=== PATIENT | female | born 1970 | race Caucasian/White ===

== ENCOUNTER 2017-06-06 14:14 | Emergency (ER) | payer SELFPAY | END 2017-06-06 14:15 | disposition left against medical advice (07) | LOC: ED 14:14 | DX: Z53.21 Procedure and treatment not carried out due to patient leaving prior to being seen by health care provider (principal); R53.1 Weakness ==

== ENCOUNTER 2017-06-07 04:12 | Inpatient (IN) | payer MEDICAID, OTHER ==
--- NOTE | 2017-06-07 05:16 | XRay Report ---
FINAL REPORT EXAM: XR CHEST ROUTINE 2V HISTORY: Shortness of breath TECHNIQUE: PA and lateral views of the chest were submitted. FINDINGS: The heart size and pulmonary vascular appear normal. The interstitial markings are mildly prominent bilaterally. This may be on a chronic basis. There are no localized infiltrates or effusions. The skeletal structures are well-maintained. IMPRESSION: Prominence of the interstitial markings which may be on a chronic basis. No localized infiltrates identified.
[2017-06-07 05:21] LABS: Basophils % (Auto) 0.4 % (0.0-1.8); Eosinophils # (Auto) 0.2 K/mm3 (0.0-0.4); Eosinophils % (Auto) 2.1 % (0.0-4.3); Lymphocytes # (Auto) 1.3 K/mm3 (1.2-5.4); Lymphocytes % (Auto) 14.7 % (13.4-35.0); Mean Corpuscular HGB Conc 36 % (30-34); Mean Corpuscular Hemoglobin 32 pg (28-32); Mean Corpuscular Volume 91 fl (79-97); Monocytes # (Auto) 0.5 K/mm3 (0.0-0.8); Monocytes % (Auto) 6.1 % (0.0-7.3); Platelet Count 273 K/mm3 (140-440); Red Blood Count 1.83 M/mm3 (3.65-5.03); Red Cell Distribution Width 15.8 % (13.2-15.2)
[2017-06-07 05:24] LABS: Calcium 9.4 mg/dL (8.4-10.2)
[2017-06-07 05:27] LABS: Hematocrit 16.7 % (30.3-42.9); Hemoglobin 5.9 gm/dl (10.1-14.3)
[2017-06-07 08:59] LABS: INR 1.19 (0.87-1.13)
[2017-06-07 09:00] LABS: Partial Thromboplastin Time 37.9 Sec. (24.2-36.6)
[2017-06-07] MEDS ORDERED: PERCOCET 5/325 PO ONE (09:54)
[2017-06-07] MEDS ORDERED: NACL 0.9% 500 ML 500 ML IV ONE (09:55)
--- NOTE | 2017-06-07 09:59 | Emergency Department Report ---
ED Shortness of Breath HPI - General Chief Complaint: Dyspnea/Respdistress Stated Complaint: WEAKNESS Time Seen by Provider: 06/07/17 08:16 Source: patient Mode of arrival: Ambulatory Limitations: No Limitations - History of Present Illness Initial Comments: 47-year-old female with a past medical history of end-stage disease on dialysis , recurrent anemia requiring blood transfusion, brain aneurysm status post coil , hypothyroidism presents to the hospital with complaints of cold symptoms last name is given. A last several days patient has been feeling weak, dyspneic exertion, and fatigue. Last dialysis was on the . Patient try to get dialysis yesterday/Sunday but was declined because her heart rate was elevated and she had a fever. She had nausea and vomiting last week. She is said she may need a blood transfusion she denies melena, hematochezia, or hematemesis. Patient complains of generalized pain rated 8/10 in intensity. - Related Data Allergies Allergy/AdvReac Type Severity Reaction Status Date / Time No Known Allergies Allergy Verified 06/07/17 04:32 ED Review of Systems ROS: Stated complaint: WEAKNESS Other details as noted in HPI Comment: All other systems reviewed and negative Other: Constitutional: No fevers chills Eyes: No eye pain visual changes ENT: No ear pain or throat pain Neck: Denies pain Respiratory: As per HPI Cardiovascular: Denies chest pain, palpitations, syncope GI: Denies abdominal pain : Denies dysuria Musculoskeletal: Generalized muscular skeletal pain Skin: Denies rash, lesions, erythema Neurologic: Denies headache, numbness Psychiatric: Denies suicidal ideation, hallucinations ED Past Medical Hx - Past Medical History Previous Medical History?: Yes Hx Renal Disease: Yes (Dialysis Sun, sun, sun) Hx Psychiatric Treatment: Yes (depression) Hx HIV: Yes Additional medical history: hyperthyroid - Surgical History Past Surgical History?: No Additional Surgical History: brain anyerism with coil. graft right upper arm - Social History Smoking Status: Current Every Day Smoker Substance Use Type: Marijuana ED Physical Exam - General Limitations: No Limitations - Other Other exam information: General: No limitations, patient is alert in no acute distress Head exam: Atraumatic, normocephalic Eyes exam: Normal appearance ENT: Moist mucous membrane, normal oropharynx Neck exam: Normal inspection, full range of motion Respiratory exam: Crackles at the bases Cardiovascular: Normal rate and rhythm Abdomen: Soft, nondistended, and nontender, with normal bowel sounds, no rebound, or guarding Rectal: Guaiac negative brown stool Extremity: Full range of motion normal inspection no deformity Back: Normal Inspection, full range of motion, no tenderness Neurologic: Alert, oriented x3, cranial nerves intact, no motor or sensory deficit Psychiatric: normal affect, normal mood Skin: Warm, dry, intact ED Course Vital Signs 06/07/17 06/07/17 06/07/17 04:21 04:25 07:40 Temperature 98.2 F 98.2 F Pulse Rate 99 H 97 H 99 H Respiratory 18 18 20 Rate Blood Pressure 187/92 187/92 Blood Pressure [Left] O2 Sat by Pulse 98 100 100 Oximetry 06/07/17 06/07/17 06/07/17 07:48 07:49 07:51 Temperature 98.2 F Pulse Rate 98 H 99 H Respiratory 22 22 16 Rate Blood Pressure 151/86 Blood Pressure 151/86 [Left] O2 Sat by Pulse 96 100 Oximetry 06/07/17 06/07/17 06/07/17 08:00 08:11 08:21 Temperature Pulse Rate 99 H 100 H 101 H Respiratory 22 31 H 26 H Rate Blood Pressure 161/89 161/89 161/89 Blood Pressure [Left] O2 Sat by Pulse 98 96 98 Oximetry 06/07/17 06/07/17 06/07/17 08:31 08:41 08:51 Temperature Pulse Rate 105 H 113 H 105 H Respiratory 24 30 H 23 Rate Blood Pressure 161/89 161/89 161/89 Blood Pressure [Left] O2 Sat by Pulse 100 100 Oximetry 06/07/17 06/07/17 06/07/17 09:00 09:11 09:21 Temperature Pulse Rate 100 H 99 H 102 H Respiratory 18 31 H 16 Rate Blood Pressure 154/84 154/84 161/89 Blood Pressure [Left] O2 Sat by Pulse 97 98 99 Oximetry 06/07/17 06/07/17 06/07/17 09:30 09:41 09:50 Temperature Pulse Rate 105 H 99 H 108 H Respiratory 19 24 24 Rate Blood Pressure 161/89 161/89 154/84 Blood Pressure [Left] O2 Sat by Pulse 100 99 99 Oximetry 06/07/17 06/07/17 06/07/17 10:01 10:11 10:21 Temperature Pulse Rate 99 H 108 H 101 H Respiratory 25 H 21 26 H Rate Blood Pressure 154/84 154/84 154/84 Blood Pressure [Left] O2 Sat by Pulse 100 100 98 Oximetry 06/07/17 06/07/17 06/07/17 10:31 10:50 11:00 Temperature 99.0 F Pulse Rate 102 H 101 H 103 H Respiratory 31 H 20 Rate Blood Pressure 154/84 153/85 167/92 Blood Pressure [Left] O2 Sat by Pulse 98 Oximetry 06/07/17 06/07/17 06/07/17 11:15 11:30 11:45 Temperature Pulse Rate 103 H 103 H 101 H Respiratory Rate Blood Pressure 156/85 156/85 165/83 Blood Pressure [Left] O2 Sat by Pulse Oximetry 06/07/17 06/07/17 06/07/17 12:00 12:15 12:30 Temperature Pulse Rate 98 H 98 H 98 H Respiratory Rate Blood Pressure 166/89 166/89 151/88 Blood Pressure [Left] O2 Sat by Pulse Oximetry 06/07/17 06/07/17 06/07/17 12:45 13:00 13:15 Temperature Pulse Rate 97 H 97 H 95 H Respiratory Rate Blood Pressure 163/84 163/84 150/82 Blood Pressure [Left] O2 Sat by Pulse Oximetry 06/07/17 06/07/17 13:30 13:45 Temperature Pulse Rate 96 H 91 H Respiratory Rate Blood Pressure 156/84 142/84 Blood Pressure [Left] O2 Sat by Pulse Oximetry - Reevaluation(s) Reevaluation #1: 06/07/17 11:00 Percocet provided for pain - Consultations Consultation #1: 06/07/17 9:[address] Ward continuous dryout operator helper community mental health social worker for Dr. Holland. Will arrange for dialysis and transfusion with dialysis ED Medical Decision Making - Lab Data Result diagrams: 06/07/17 04:45 06/07/17 04:45 Lab Results 06/07/17 06/07/17 06/07/17 Range/Units 04:45 04:45 04:45 WBC 8.9 (4.5-11.0) K/mm3 RBC 1.83 L (3.65-5.03) M/mm3 Hgb 5.9 L* (10.1-14.3) gm/dl Hct 16.7 L* (30.3-42.9) % MCV 91 (79-97) fl MCH 32 (28-32) pg MCHC 36 H (30-34) % RDW 15.8 H (13.2-15.2) % Plt Count 273 (140-440) K/mm3 Lymph % (Auto) 14.7 (13.4-35.0) % [place]th % (Auto) 6.1 (0.0-7.3) % Eos % (Auto) 2.1 (0.0-4.3) % Baso % (Auto) 0.4 (0.0-1.8) % Lymph # 1.3 (1.2-5.4) K/mm3 [place]th # 0.5 (0.0-0.8) K/mm3 Eos # 0.2 (0.0-0.4) K/mm3 Baso # 0.0 (0.0-0.1) K/mm3 Seg Neutrophils % 76.7 H (40.0-70.0) % Seg Neutrophils # 6.9 (1.8-7.7) K/mm3 PT (12.2-14.9) Sec. INR (0.87-1.13) APTT (24.2-36.6) Sec. Sodium 132 L (137-145) mmol/L Potassium 4.7 (3.6-5.0) mmol/L Chloride 88.5 L (98-107) mmol/L Carbon Dioxide 18 L (22-30) mmol/L Anion Gap 30 mmol/L BUN 73 H (7-17) mg/dL Creatinine 14.7 H (0.7-1.2) mg/dL Estimated GFR 3 ml/min BUN/Creatinine Ratio 5 % Glucose 106 H (65-100) mg/dL Calcium 9.4 (8.4-10.2) mg/dL Troponin T < 0.010 (0.00-0.029) ng/mL NT-Pro-B Natriuret Pep (0-450) pg/mL Blood Type Antibody Screen Crossmatch 06/07/17 06/07/17 06/07/17 Range/Units 04:45 08:28 08:28 WBC (4.5-11.0) K/mm3 RBC (3.65-5.03) M/mm3 Hgb (10.1-14.3) gm/dl Hct (30.3-42.9) % MCV (79-97) fl MCH (28-32) pg MCHC (30-34) % RDW (13.2-15.2) % Plt Count (140-440) K/mm3 Lymph % (Auto) (13.4-35.0) % [place]th % (Auto) (0.0-7.3) % Eos % (Auto) (0.0-4.3) % Baso % (Auto) (0.0-1.8) % Lymph # (1.2-5.4) K/mm3 Smyth # (0.0-0.8) K/mm3 Eos # (0.0-0.4) K/mm3 Baso # (0.0-0.1) K/mm3 Seg Neutrophils % (40.0-70.0) % Seg Neutrophils # (1.8-7.7) K/mm3 PT 15.7 H (12.2-14.9) Sec. INR 1.19 H (0.87-1.13) APTT 37.9 H (24.2-36.6) Sec. Sodium (137-145) mmol/L Potassium (3.6-5.0) mmol/L Chloride (98-107) mmol/L Carbon Dioxide (22-30) mmol/L Anion Gap mmol/L BUN (7-17) mg/dL Creatinine (0.7-1.2) mg/dL Estimated GFR ml/min BUN/Creatinine Ratio % Glucose (65-100) mg/dL Calcium (8.4-10.2) mg/dL Troponin T (0.00-0.029) ng/mL NT-Pro-B Natriuret Pep 90004 H (0-450) pg/mL Blood Type A POSITIVE Antibody Screen Negative Crossmatch See Detail - EKG Data -: EKG Interpreted by Mt EKG shows normal: sinus rhythm, axis (52), QRS complexes (97), ST-T waves (mild peak t waves, no stemi/t inv) Rate: normal (97) - Radiology Data Radiology results: report reviewed Read by radiologist Chest x-ray: Prominence of interstitial markings which may be on a chronic basis. No focal infiltrate - Medical Decision Making Patient requires admission to the hospital for symptomatic anemia and dialysis. Community Affairs Director informed. Patient will receive dialysis and transfusion. Hospitalist contacted. No signs of infection or sepsis at this time - Differential Diagnosis CHF, bronchitis, pneumonia, symptomatic anemia Critical Care Time: No Critical care attestation.: If time is entered above; I have spent that time in minutes in the direct care of this critically ill patient, excluding procedure time. ED Disposition Clinical Impression: Symptomatic anemia, ESRD (end stage renal disease) on dialysis, ESRD needing dialysis, HTN (hypertension) Disposition: OP ADMIT IP TO THIS HOSP Is pt being admited?: Yes Condition: Stable Time of Disposition: 09:59 ([place]/hosp)
[2017-06-07] MEDS ORDERED: NACL 0.9% 100 ML IV PRN (10:31)
--- NOTE | 2017-06-07 10:46 | History and Physical Report ---
History of Present Illness Date of examination: 06/07/17 Chief complaint: Generalized weakness History of present illness: 47 year old -[place] female with past medical history significant for HIV/AIDS, end-stage disease on hemodialysis, depression, hypothyroidism, asthma , brain aneurysm status post coil presented to the emergency department complaining of generalized weakness for the last 1 month. Patient is also complaining fever episode on Sunday. Patient moved from [place] run out of all her medication for the last 1 month. She gets her dialysis as an outpatient. Patient is waiting her medcare to be fixed to get her medications. Patient has history of anemia and had transfusions before. REVIEW OF SYSTEMS: GENERAL: no weight change, no fatigue, no fever HEAD: no head ache EYES: no blurry vision, no acute visual loss EARS: no hearing loss, no discharge, no earache NOSE: no stuffiness, no sneezing, no discharge MOUTH, THROAT AND NECK: no bleeding gums, no sore throat, no swollen neck CARDIAC: no palpitations, no dyspnea on exertion, no orthopnea, no PND, no edema , no chest pain RESPIRATORY: no shortness of breath, no wheeze, no cough, no sputum, no hemoptysis, no asthma GI: + decreased appetite, no nausea, no vomiting, no dysphagia, no diarrhea, no constipation, no abdominal pain URINARY: no change in frequency, no urgency, no polyuria, no hematuria, no incontinence MUSCULOSKELETAL: no muscle weakness, no pain, no joint stiffness NEUROLOGIC: no loss of sensation/numbness, no tingling, no tremors, no weakness/ paralysis HEMATOLOGIC: + anemia, no easy bruising SKIN: no rashes ENDOCRINE: no polyuria, no polydipsia, no diabetes PSYCHIATRIC: no anxiety, + depression, no suicidal ideations Past History Past Medical History: HIV/AIDS, renal failure, other (depression, asthma) Past Surgical History: Other (Brain aneurysm s/p coil, AV graft) Social history: smoking (1/2 PPD), full code. denies: alcohol abuse, prescription drug abuse, IV drug use Family history: other (CKD, mom / Grand mother) Medications and Allergies Allergies Allergy/AdvReac Type Severity Reaction Status Date / Time No Known Allergies Allergy Verified 06/07/17 04:32 Active Meds: Active Medications Sodium Chloride (Nacl 0.9%) 100 mls @ 999 mls/hr IV CHRISSIE PRN PRN Reason: Hypotension Exam - Physical Exam Narrative exam: Not in cardiopulmonary distress. The patient appeared well nourished and normally developed. Vital signs as documented. Head exam is unremarkable. No scleral icterus . Neck is without jugular venous distension, thyromegaly, or carotid bruits. Lungs are clear to auscultation. Cardiac exam reveals regular rate and Rhythm. First and second heart sounds normal. No murmurs, rubs or gallops. Abdominal exam reveals normal bowel sounds, no masses, no organomegaly and no aortic enlargement. Extremities are nonedematous and both femoral and pedal pulses are normal. TRESTLE BUILDER: Alert and oriented 3. No focal weakness. - Constitutional Vitals: Temp Pulse Resp BP Pulse Ox 98.2 F 98 H 22 151/86 96 06/07/17 07:48 06/07/17 07:48 06/07/17 07:49 06/07/17 07:48 06/07/17 07:49 Results - Labs CBC & Chem 7: 06/07/17 16:15 06/07/17 04:45 Labs: Laboratory Last Values WBC 8.9 K/mm3 (4.5-11.0) 06/07/17 04:45 RBC 1.83 M/mm3 (3.65-5.03) L 06/07/17 04:45 Hgb 5.9 gm/dl (10.1-14.3) L* 06/07/17 04:45 Hct 16.7 % (30.3-42.9) L* 06/07/17 04:45 MCV 91 fl (79-97) 06/07/17 04:45 MCH 32 pg (28-32) 06/07/17 04:45 MCHC 36 % (30-34) H 06/07/17 04:45 RDW 15.8 % (13.2-15.2) H 06/07/17 04:45 Plt Count 273 K/mm3 (140-440) 06/07/17 04:45 Lymph % (Auto) 14.7 % (13.4-35.0) 06/07/17 04:45 [place] % (Auto) 6.1 % (0.0-7.3) 06/07/17 04:45 Eos % (Auto) 2.1 % (0.0-4.3) 06/07/17 04:45 Baso % (Auto) 0.4 % (0.0-1.8) 06/07/17 04:45 Lymph # 1.3 K/mm3 (1.2-5.4) 06/07/17 04:45 [place] # 0.5 K/mm3 (0.0-0.8) 06/07/17 04:45 Eos # 0.2 K/mm3 (0.0-0.4) 06/07/17 04:45 Baso # 0.0 K/mm3 (0.0-0.1) 06/07/17 04:45 Seg Neutrophils % 76.7 % (40.0-70.0) H 06/07/17 04:45 Seg Neutrophils # 6.9 K/mm3 (1.8-7.7) 06/07/17 04:45 PT 15.7 Sec. (12.2-14.9) H 06/07/17 08:28 INR 1.19 (0.87-1.13) H 06/07/17 08:28 APTT 37.9 Sec. (24.2-36.6) H 06/07/17 08:28 Sodium 132 mmol/L (137-145) L 06/07/17 04:45 Potassium 4.7 mmol/L (3.6-5.0) 06/07/17 04:45 Chloride 88.5 mmol/L (98-107) L 06/07/17 04:45 Carbon Dioxide 18 mmol/L (22-30) L 06/07/17 04:45 Anion Gap 30 mmol/L 06/07/17 04:45 BUN 73 mg/dL (7-17) H 06/07/17 04:45 Creatinine 14.7 mg/dL (0.7-1.2) H 06/07/17 04:45 Estimated GFR 3 ml/min 06/07/17 04:45 BUN/Creatinine Ratio 5 % 06/07/17 04:45 Glucose 106 mg/dL (65-100) H 06/07/17 04:45 Calcium 9.4 mg/dL (8.4-10.2) 06/07/17 04:45 Troponin T < 0.010 ng/mL (0.00-0.029) 06/07/17 04:45 NT-Pro-B Natriuret Pep 00915 pg/mL (0-450) H 06/07/17 04:45 Blood Type A POSITIVE 06/07/17 08:28 Antibody Screen Negative 06/07/17 08:28 Crossmatch See Detail 06/07/17 08:28 Assessment and Plan Assessment and plan: 47-year-old -[place] female with past medical history significant for incisional disease on hemodialysis, HIV AIDS, hypothyroidism, depression. Emergency department complaining of generalized weakness. Symptomatic anemia - Likely due to anemia of chronic illness - Patient was transfused with 2 units of blood and posttransfusion hemoglobin is 8 ESRD on hemodialysis - Nephrology was consulted and patient will continue hemodialysis as scheduled HIV-AIDS - Home medications were started - ID consulted to adjust her medications Depression - Continue medications Hypertension -Continue home medications Prophylaxis -Heparin Disposition -Admit to MedSurg floor. Advance Directives: Yes VTE prophylaxis?: Chemical Plan of care discussed with patient/family: Yes
[2017-06-07] MEDS: HEPARIN SUB-Q SCH ×2 (14:00→21:54)
[2017-06-07 16:51] LABS: Hematocrit 25.4 % (30.3-42.9); Hemoglobin 8.9 gm/dl (10.1-14.3)
[2017-06-07] MEDS ORDERED: PROAIR IH PRN (17:34)
[2017-06-07] MEDS ORDERED: DARUNAVIR PO SCH (17:45)
[2017-06-07] MEDS ORDERED: COBICISTAT PO SCH (17:45)
--- NOTE | 2017-06-07 17:48 | Consultation ---
History of Present Illness - Reason for Consult Consult date: 06/07/17 (pt was seen and examined in ER around 9.50AM. HD orders given to HD nurse. Consult dictated) Medications and Allergies Allergies Allergy/AdvReac Type Severity Reaction Status Date / Time No Known Allergies Allergy Verified 06/07/17 04:32 Active Meds: Active Medications Heparin Sodium (Porcine) (Heparin) 5,000 unit SUB-Q Q8HR MANISHA Last Admin: 06/07/17 14:00 Dose: Not Given Sodium Chloride (Nacl 0.9%) 100 mls @ 999 mls/hr IV CHRISSIE PRN PRN Reason: Hypotension Exam - Constitutional Vitals: Temp Pulse Resp BP Pulse Ox 102.1 F H 116 H 16 148/92 95 06/07/17 17:21 06/07/17 17:21 06/07/17 16:10 06/07/17 17:21 06/07/17 17:21 Results - Labs CBC & Chem 7: 06/07/17 16:15 06/07/17 04:45 Labs: Abnormal lab results 06/07/17 06/07/17 06/07/17 Range/Units 04:45 04:45 04:45 RBC 1.83 L (3.65-5.03) M/mm3 Hgb 5.9 L* (10.1-14.3) gm/dl Hct 16.7 L* (30.3-42.9) % MCHC 36 H (30-34) % RDW 15.8 H (13.2-15.2) % Seg Neutrophils % 76.7 H (40.0-70.0) % PT (12.2-14.9) Sec. INR (0.87-1.13) APTT (24.2-36.6) Sec. Sodium 132 L (137-145) mmol/L Chloride 88.5 L (98-107) mmol/L Carbon Dioxide 18 L (22-30) mmol/L BUN 73 H (7-17) mg/dL Creatinine 14.7 H (0.7-1.2) mg/dL Glucose 106 H (65-100) mg/dL NT-Pro-B Natriuret Pep 86613 H (0-450) pg/mL Crossmatch 01/04/18 01/04/18 01/04/18 Range/Units 08:28 08:28 16:15 RBC (3.65-5.03) M/mm3 Hgb 8.9 L D (10.1-14.3) gm/dl Hct 25.4 L D (30.3-42.9) % MCHC (30-34) % RDW (13.2-15.2) % Seg Neutrophils % (40.0-70.0) % PT 15.7 H (12.2-14.9) Sec. INR 1.19 H (0.87-1.13) APTT 37.9 H (24.2-36.6) Sec. Sodium (137-145) mmol/L Chloride (98-107) mmol/L Carbon Dioxide (22-30) mmol/L BUN (7-17) mg/dL Creatinine (0.7-1.2) mg/dL Glucose (65-100) mg/dL NT-Pro-B Natriuret Pep (0-450) pg/mL Crossmatch See Detail
[2017-06-07] MEDS ORDERED: TYLENOL PO PRN (18:00)
[2017-06-07] MEDS ORDERED: PROVENTIL IH PRN (18:05)
[2017-06-07] MEDS: ZESTRIL PO SCH (18:25)
[2017-06-07] MEDS: LOPRESSOR PO SCH (21:53)
[2017-06-07] MEDS: celeXA PO SCH (21:53)
[2017-06-07] MEDS: FOLVITE PO SCH (21:54)
[2017-06-08 00:32] LABS: Hematocrit 20.6 % (30.3-42.9); Hemoglobin 7.4 gm/dl (10.1-14.3)
--- NOTE | 2017-06-08 02:02 | Consultation ---
RENAL CONSULTATION HISTORY OF PRESENT ILLNESS: This is a 47-year-old -[place] female with end-stage renal disease, hypertension, was brought to the hospital for having nasal cold symptoms, fever, nausea, vomiting, sweating, shortness of breath, fatigue. The patient goes to [facility] on Sunday, Sunday, and Sunday. Her last hemodialysis treatment was on 06/01/2017. The patient did not go to dialysis this week. Yesterday, when she went to the dialysis clinic, she was told to have tachycardia with heart rate of 123 and was referred to the hospital. The patient states that she has been having cold symptoms since , had fever of 103 at home and then she states that she took [place] and Motrin. She complains that her whole body is hurting and no energy and no hemodialysis on Sunday or Sunday. The patient states that she has been on hemodialysis for the past 10 years. Moved from [place] towards the end of March. PAST MEDICAL HISTORY: End-stage renal disease; hypertension; hypothyroidism; history of HIV; and history of brain aneurysm, status post coil. PERSONAL HISTORY: History of smoking and marijuana. ALLERGIES: No known allergies. CURRENT MEDICATIONS: Celexa 10 mg once a day, folic acid once a day, Epivir 150 mg once a day, Synthroid 25 mcg once a day, lisinopril 20 mg once a day, metoprolol 25 mg b.i.d., tenofovir 300 mg once a day. FAMILY HISTORY: No family history of kidney failure. REVIEW OF SYSTEMS: As mentioned in history of present illness, the patient denies abdominal pain or GI bleeding. Other review of systems reviewed and negative. PHYSICAL EXAMINATION: GENERAL: The patient is alert, oriented. VITAL SIGNS: Blood pressure 187/90, pulse 97, afebrile. HEENT: Head is normocephalic. Eyes: Pupils reactive. Conjunctivae pale. Oral mucosa: Tongue and lips are dry. NECK: No JVD. No thyroid enlargement. LUNGS: Diminished breath sounds at bases. HEART: S1, S2 regular. A 2/6 systolic murmur along the left sternal border. ABDOMEN: Soft, bowel sounds present, nontender. EXTREMITIES: No significant edema. Right upper arm AV fistula has bruit and thrill. LABORATORY DATA: WBC 8.9, hemoglobin 5.9, hematocrit 16.7, platelets 273. Sodium 132, potassium 4.7, chloride 88, CO2 of 18, BUN 73, creatinine 14.7, calcium 9.4. ASSESSMENT AND PLAN: 1. Severe symptomatic anemia. The patient denies active bleeding. Check anemia workup. 2. End-stage renal disease. 3. Hypertension. 4. Metabolic acidosis. 5. Mild hyponatremia. Hemodialysis as ordered with no heparin. The patient to receive packed RBC transfusion with dialysis, ultrafiltration as tolerated. Adjust medications per renal function. Discussed with the ER physician, Dr. Rice. JOB# [id number] K/NTS
[2017-06-08 06:10] LABS: Hematocrit 21.3 % (30.3-42.9); Hemoglobin 7.4 gm/dl (10.1-14.3)
[2017-06-08] MEDS: SYNTHROID PO SCH (06:27)
[2017-06-08] MEDS: HEPARIN SUB-Q SCH ×3 (06:28→21:34)
--- NOTE | 2017-06-08 09:15 | Progress Note ---
Subjective Interval history: Patient was seen today for follow-up on multiple renal related issues Events of this hospitalization noted Patient does not remember having any recent colonoscopy She denies seeing any blood in the urine or stool Patient denies having any chest pain pressure or shortness of breath Vitals labs intake output medications were reviewed Social history: Reviewed Allergies: Reviewed Family history: Reviewed Physical examination HEENT: Oral mucosa moist no pallor or icterus Neck: Supple no JVD Chest: Clear to auscultation anteriorly CVS: Regular rate and rhythm S1 and S2 heard Abdomen: Soft nontender no suprapubic masses no organomegaly appreciable Extremity: Dry skin less than 1+ peripheral edema Musculoskeletal: No joint effusion noted in knees and ankle Neurological: Alert awake Dermatology: No petechial rashes Psychiatry: No evidence of any agitation and aggression noted Assessment and plan End-stage renal disease: Patient did receive hemodialysis, she'll continue to dialyze on Sunday and Sunday schedule here, she is currently a new patient at [facility] dialysis facility Anemia in end-stage renal disease: Post packed red blood cell transfusion, no heparin with dialysis, needs further workup including a GI and hematological workup from renal standpoint anemia is quite significant patient was advised to follow-up with hematology oncology as well as gastroenterology after discharge as well. medically she appears to be stable in terms of having any shortness of breath chest pain or fatigue Secondary hyperparathyroidism: To monitor and follow HIV disease patient needs to be seen and followed by infectious disease Malnutrition risk: High in dialysis patient please consider high protein diet at least 1.5 g per KG body weight nutrition consultation will be helpful Patient was adequately counseled and educated regarding multiple renal related issues Pertinent lab findings were discussed with patient, patient does exhibit good understanding of renal issues We'll continue to follow and make recommendation from renal standpoint Objective - Vital Signs Vital signs: Vital Signs - 12hr 06/07/17 06/08/17 21:35 07:48 Temperature 97.4 F L 98.9 F Pulse Rate 103 H 93 H Respiratory 16 18 Rate Blood Pressure 130/79 142/79 O2 Sat by Pulse 98 92 Oximetry - Lab 06/08/17 16:29 06/07/17 04:45 Most recent lab results Calcium 9.4 mg/dL (8.4-10.2) 06/07/17 04:45
--- NOTE | 2017-06-08 11:57 | Gastroenterology Consultation ---
<BASSEM GRIFFIN - Last Filed: 06/08/17 12:14> History of Present Illness - Reason for Consult Consult date: 06/08/17 anemia Requesting physician: LASHAWN FLORES - History of Present Illness Patient is a 47 y/o female with PMH of HIV/AIDS, ESRD on HD, depression, hypothyroidism, asthma, brain aneurysm (s/p coil), and chronic anemia requiring multiple transfusions in the past who presented to ED with c/o weakness. GI has been consulted for anemia. This morning pt was sitting up in bed w/o distress. Daughter at bedside. Patient states she recently moved to this area from [place] and while there she was recommended to have an EGD/colonoscopy for hx of anemia but never followed up. She denies any signs of active bleeding such as hematemesis, melena, or hematochezia. No NSAID use. No hx of PUD or liver disease. Admits to a Fhx of colon cancer with her father diagnosed in his 50s. She is currently w/o GI complaints. Denies fever, wt loss, CP, SOB, dizziness, abd pain, N/V, dysphagia, diarrhea, or constipation. Past History Past Medical History: HIV/AIDS, renal failure, other (depression, asthma) Past Surgical History: Other (Brain aneurysm s/p coil, AV graft) Social history: smoking (1/2 PPD), full code. denies: alcohol abuse, prescription drug abuse, IV drug use Family history: other (CKD, mom / Grand mother) Medications and Allergies Allergies Allergy/AdvReac Type Severity Reaction Status Date / Time No Known Allergies Allergy Verified 06/07/17 04:32 Active Meds: Active Medications Acetaminophen (Tylenol) 650 mg PO Q6H PRN PRN Reason: Pain, Mild (1-3) Last Admin: 06/07/17 18:25 Dose: 650 mg Albuterol (Proventil) 2.5 mg IH Q4HRT PRN PRN Reason: Shortness Of Breath Citalopram Hydrobromide (Celexa) 10 mg PO QDAY [facility] Last Admin: 06/07/17 21:53 Dose: 10 mg Folic Acid (Folvite) 1 mg PO QDAY [facility] Last Admin: 06/07/17 21:54 Dose: 1 mg Heparin Sodium (Porcine) (Heparin) 5,000 unit SUB-Q Q8HR [facility] Last Admin: 06/08/17 06:28 Dose: 5,000 unit Sodium Chloride (Nacl 0.9%) 100 mls @ 999 mls/hr IV CHRISSIE PRN PRN Reason: Hypotension Lamivudine (Epivir) 150 mg PO MoWeFr [facility] Levothyroxine Sodium (Synthroid) 25 mcg PO DAILY@0600 [facility] Last Admin: 06/08/17 06:27 Dose: 25 mcg Lisinopril (Zestril) 20 mg PO QDAY [facility] Last Admin: 06/07/17 18:25 Dose: 20 mg Metoprolol Tartrate (Lopressor) 25 mg PO BID [facility] Last Admin: 06/07/17 21:53 Dose: 25 mg Miscellaneous Medication (Cobicistat-Darunavir) 1 tab PO DAILY [facility] Tenofovir Disoproxil Fumarate (Viread) 300 mg PO [facility] Review of Systems - Review of Systems All systems: negative Constitutional: weakness Gastrointestinal: no hematemesis, no coffee ground emesis, no melena, no hematochezia Exam - Constitutional Vital Signs: Temp Pulse Resp BP Pulse Ox 98.9 F 93 H 18 142/79 92 06/08/17 07:48 06/08/17 07:48 06/08/17 07:48 06/08/17 07:48 06/08/17 07:48 General appearance: no acute distress, well-nourished - EENT Eyes: PERRL, EOM intact ENT: hearing intact - Respiratory Respiratory: bilateral: CTA - Cardiovascular Rhythm: regular Heart Sounds: Present: S1 & S2 - Gastrointestinal General gastrointestinal: Present: soft, non-tender, non-distended, normal bowel sounds - Neurologic Neurological: alert and oriented x3 - Labs CBC & Chem 7: 06/08/17 05:15 06/07/17 04:45 Lab Results: Laboratory Results - last 24 hr 06/07/17 06/07/17 06/07/17 00:00 08:28 16:15 Hgb 7.4 L 8.9 L D Hct 20.6 L 25.4 L D Blood Type A POSITIVE Antibody Screen Negative Crossmatch See Detail 06/08/17 05:15 Hgb 7.4 L Hct 21.3 L Blood Type Antibody Screen Crossmatch Assessment and Plan 1.anemia -HGB 7.4- s/p transfusion 1 unit PRBCs -continue to monitor H/H and transfuse as needed -pt reports a chronic hx of anemia requiring previous transfusions while living in [place] -currently no active signs of bleeding -etiology unclear- possibly 2/2 ESRD -recommend pt have EGD and colonoscopy as an outpatient -plan discussed with pt and she is in agreement (also discussed plan with Dr. Flores) -continue supportive care -pt is okay to be d/c from GI standpoint with f/u clinic appt in 2-3 weeks to schedule EGD/colonoscopy -will sign off, please re-consult if needed <MARKY RATLIFF R - Last Filed: 06/08/17 12:23> Medications and Allergies Active Meds: Active Medications Acetaminophen (Tylenol) 650 mg PO Q6H PRN PRN Reason: Pain, Mild (1-3) Last Admin: 06/07/17 18:25 Dose: 650 mg Albuterol (Proventil) 2.5 mg IH Q4HRT PRN PRN Reason: Shortness Of Breath Citalopram Hydrobromide (Celexa) 10 mg PO QDAY [facility] Last Admin: 06/07/17 21:53 Dose: 10 mg Folic Acid (Folvite) 1 mg PO QDAY [facility] Last Admin: 06/07/17 21:54 Dose: 1 mg Heparin Sodium (Porcine) (Heparin) 5,000 unit SUB-Q Q8HR [facility] Last Admin: 06/08/17 06:28 Dose: 5,000 unit Sodium Chloride (Nacl 0.9%) 100 mls @ 999 mls/hr IV CHRISSIE PRN PRN Reason: Hypotension Lamivudine (Epivir) 150 mg PO MoWeFr [facility] Levothyroxine Sodium (Synthroid) 25 mcg PO DAILY@0600 [facility] Last Admin: 06/08/17 06:27 Dose: 25 mcg Lisinopril (Zestril) 20 mg PO QDAY [facility] Last Admin: 06/07/17 18:25 Dose: 20 mg Metoprolol Tartrate (Lopressor) 25 mg PO BID [facility] Last Admin: 06/07/17 21:53 Dose: 25 mg Miscellaneous Medication (Cobicistat-Darunavir) 1 tab PO DAILY [facility] Tenofovir Disoproxil Fumarate (Viread) 300 mg PO [facility] Exam - Constitutional Vital Signs: Temp Pulse Resp BP Pulse Ox 98.9 F 93 H 18 142/79 92 06/08/17 07:48 06/08/17 07:48 06/08/17 07:48 06/08/17 07:48 06/08/17 07:48 - Labs CBC & Chem 7: 06/08/17 05:15 06/07/17 04:45 Lab Results: Laboratory Results - last 24 hr 06/07/17 06/07/17 06/07/17 00:00 08:28 16:15 Hgb 7.4 L 8.9 L D Hct 20.6 L 25.4 L D Blood Type A POSITIVE Antibody Screen Negative Crossmatch See Detail 06/08/17 05:15 Hgb 7.4 L Hct 21.3 L Blood Type Antibody Screen Crossmatch Assessment and Plan Pt had HIV in , on HD for ESRD since 2004, and has anemia for more than 1 yr. No GI symptoms. Low RBC c/w low erythropoietin levels. No elidia GI bleed. - check iron studies, etc. - will do EGD/Colon as outpatient. Discussed with Dr. Flores, Dr. Holland, and pt. She was given contact info.
--- NOTE | 2017-06-08 12:58 | Hem/Onc Consultation ---
History of Present Illness - Reason for Consult Consult date: 06/08/17 - History of Present Illness Consulted for anemia. She relocated from [place]. Is on dialysis. Has many medical problems but states she ran out of all her medications and came to ER. She has chronic anemia known since when [place] was [place] and advised workup. Past History Past Medical History: HIV/AIDS, renal failure, other (depression, asthma) Past Surgical History: Other (Brain aneurysm s/p coil, AV graft) Social history: smoking (1/2 PPD), full code. denies: alcohol abuse, prescription drug abuse, IV drug use Family history: other (CKD, mom / Grand mother) Medications and Allergies Allergies Allergy/AdvReac Type Severity Reaction Status Date / Time No Known Allergies Allergy Verified 06/07/17 04:32 Active Meds: Active Medications Acetaminophen (Tylenol) 650 mg PO Q6H PRN PRN Reason: Pain, Mild (1-3) Last Admin: 06/07/17 18:25 Dose: 650 mg Albuterol (Proventil) 2.5 mg IH Q4HRT PRN PRN Reason: Shortness Of Breath Citalopram Hydrobromide (Celexa) 10 mg PO QDAY [facility] Last Admin: 06/07/17 21:53 Dose: 10 mg Folic Acid (Folvite) 1 mg PO QDAY [facility] Last Admin: 06/07/17 21:54 Dose: 1 mg Heparin Sodium (Porcine) (Heparin) 5,000 unit SUB-Q Q8HR [facility] Last Admin: 06/08/17 06:28 Dose: 5,000 unit Sodium Chloride (Nacl 0.9%) 100 mls @ 999 mls/hr IV CHRISSIE PRN PRN Reason: Hypotension Lamivudine (Epivir) 150 mg PO MoWeFr [facility] Levothyroxine Sodium (Synthroid) 25 mcg PO DAILY@0600 [facility] Last Admin: 06/08/17 06:27 Dose: 25 mcg Lisinopril (Zestril) 20 mg PO QDAY [facility] Last Admin: 06/07/17 18:25 Dose: 20 mg Metoprolol Tartrate (Lopressor) 25 mg PO BID [facility] Last Admin: 06/07/17 21:53 Dose: 25 mg Miscellaneous Medication (Cobicistat-Darunavir) 1 tab PO DAILY [facility] Tenofovir Disoproxil Fumarate (Viread) 300 mg PO Fr [facility] Review of Systems All systems: negative (weakness) Exam - Constitutional Vitals: Last Vital Signs Temp 98.9 F 06/08/17 07:48 Pulse 93 H 06/08/17 07:48 Resp 18 06/08/17 07:48 BP 142/79 06/08/17 07:48 Pulse Ox 92 06/08/17 07:48 - EENT Eyes: PERRL ENT: hearing intact Lymph node exam: negative cervical - Neck Neck: supple - Respiratory Respiratory effort: Positive: normal Respiratory: bilateral: CTA - Cardiovascular Rhythm: regular Extremities: No edema - Gastrointestinal General gastrointestinal: Present: soft - Integumentary Integumentary: clear - Musculoskeletal Musculoskeletal: strength equal bilaterally - Neurologic Neurologic: CNII-XII intact - Psychiatric Psychiatric: appropriate mood/affect Results - Labs lab Results: Laboratory Results - last 24 hr 06/07/17 06/07/17 06/07/17 00:00 08:28 16:15 Hgb 7.4 L 8.9 L D Hct 20.6 L 25.4 L D Blood Type A POSITIVE Antibody Screen Negative Crossmatch See Detail 06/08/17 05:15 Hgb 7.4 L Hct 21.3 L Blood Type Antibody Screen Crossmatch Assessment and Plan - Patient Problems (1) ESRD (end stage renal disease) on dialysis Current Visit: Yes Status: Acute Plan to address problem: Appreciate nephrology input (2) HTN (hypertension) Current Visit: Yes Status: Acute Plan to address problem: Monitor (3) Symptomatic anemia Current Visit: Yes Status: Acute Plan to address problem: Anemia workup in progress. Please call with questions. D/w daughter and patient importance of outpatient follow up. All agree.
--- NOTE | 2017-06-08 13:55 | Progress Note ---
Assessment and Plan Assessment and plan: 47-year-old -Spanish female with past medical history significant for ESRD on hemodialysis, HIV/AIDS, hypothyroidism, depression. Emergency department complaining of generalized weakness. Symptomatic anemia - Likely due to anemia of chronic illness - Patient was transfused with 2 units of blood and posttransfusion hemoglobin is 7.4 - GI and hematology consult appreciated ESRD on hemodialysis - Nephrology was consulted and patient will continue hemodialysis as scheduled HIV-AIDS - Home medications were started - ID consulted to adjust her medications Depression - Continue medications Hypertension -Continue home medications Prophylaxis -Heparin Disposition -Admit to [facility] floor. History Interval history: patient was seen and evaluated this morning, no new complaints. She get dialysis yesterday. Hospitalist Physical - Physical exam Narrative exam: Not in cardiopulmonary distress. The patient appeared well nourished and normally developed. Vital signs as documented. Head exam is unremarkable. No scleral icterus . Neck is without jugular venous distension, thyromegaly, or carotid bruits. Lungs are clear to auscultation. Cardiac exam reveals regular rate and Rhythm. First and second heart sounds normal. No murmurs, rubs or gallops. Abdominal exam reveals normal bowel sounds, no masses, no organomegaly and no aortic enlargement. Extremities are nonedematous and both femoral and pedal pulses are normal. PRACTICE BILLING ASSOCIATE: Alert and oriented 3. No focal weakness. - Constitutional Vitals: Temp Pulse Resp BP Pulse Ox 98.9 F 93 H 18 142/79 92 06/08/17 07:48 06/08/17 07:48 06/08/17 07:48 06/08/17 07:48 06/08/17 07:48 Results - Labs CBC & Chem 7: 06/08/17 05:15 06/07/17 04:45 Labs: Laboratory Last Values WBC 8.9 K/mm3 (4.5-11.0) 06/07/17 04:45 RBC 1.83 M/mm3 (3.65-5.03) L 06/07/17 04:45 Hgb 7.4 gm/dl (10.1-14.3) L 06/08/17 05:15 Hct 21.3 % (30.3-42.9) L 06/08/17 05:15 MCV 91 fl (79-97) 06/07/17 04:45 MCH 32 pg (28-32) 06/07/17 04:45 MCHC 36 % (30-34) H 06/07/17 04:45 RDW 15.8 % (13.2-15.2) H 06/07/17 04:45 Plt Count 273 K/mm3 (140-440) 06/07/17 04:45 Lymph % (Auto) 14.7 % (13.4-35.0) 06/07/17 04:45 Routt % (Auto) 6.1 % (0.0-7.3) 06/07/17 04:45 Eos % (Auto) 2.1 % (0.0-4.3) 06/07/17 04:45 Baso % (Auto) 0.4 % (0.0-1.8) 06/07/17 04:45 Lymph # 1.3 K/mm3 (1.2-5.4) 06/07/17 04:45 Routt # 0.5 K/mm3 (0.0-0.8) 06/07/17 04:45 Eos # 0.2 K/mm3 (0.0-0.4) 06/07/17 04:45 Baso # 0.0 K/mm3 (0.0-0.1) 06/07/17 04:45 Seg Neutrophils % 76.7 % (40.0-70.0) H 06/07/17 04:45 Seg Neutrophils # 6.9 K/mm3 (1.8-7.7) 06/07/17 04:45 PT 15.7 Sec. (12.2-14.9) H 06/07/17 08:28 INR 1.19 (0.87-1.13) H 06/07/17 08:28 APTT 37.9 Sec. (24.2-36.6) H 06/07/17 08:28 Sodium 132 mmol/L (137-145) L 06/07/17 04:45 Potassium 4.7 mmol/L (3.6-5.0) 06/07/17 04:45 Chloride 88.5 mmol/L (98-107) L 06/07/17 04:45 Carbon Dioxide 18 mmol/L (22-30) L 06/07/17 04:45 Anion Gap 30 mmol/L 06/07/17 04:45 BUN 73 mg/dL (7-17) H 06/07/17 04:45 Creatinine 14.7 mg/dL (0.7-1.2) H 06/07/17 04:45 Estimated GFR 3 ml/min 06/07/17 04:45 BUN/Creatinine Ratio 5 % 06/07/17 04:45 Glucose 106 mg/dL (65-100) H 06/07/17 04:45 Calcium 9.4 mg/dL (8.4-10.2) 06/07/17 04:45 Troponin T < 0.010 ng/mL (0.00-0.029) 06/07/17 04:45 NT-Pro-B Natriuret Pep 17224 pg/mL (0-450) H 06/07/17 04:45 Blood Type A POSITIVE 06/07/17 08:28 Antibody Screen Negative 06/07/17 08:28 Crossmatch See Detail 06/07/17 08:28
[2017-06-08 14:02] LABS: Hematocrit 22.5 % (30.3-42.9); Hemoglobin 7.9 gm/dl (10.1-14.3)
--- NOTE | 2017-06-08 14:07 | Consultation ---
History of Present Illness - Reason for Consult Consult date: 06/08/17 HIV Requesting physician: LASHAWN FLORES - History of Present Illness 47 years old female with history of HIV/AIDS since 1997, followed at [place], [place], moved to [place] in Apr 2017, she stopped her ART (prezcobix+lamivudine+ viread) after moving, she has not established HIV care in [place], end-stage disease on hemodialysis, depression, hypothyroidism, asthma, brain aneurysm status post coil, admitted on 06/07/17 generalized weakness for the last 1 month, cold sensation and subjective fever. Alsoc/o dry cough for 2 months. . Patient is also complaining fever episode on Sunday. Patient is waiting her medicare to be fixed to get her medications. Denies sick contact, chest pain, N /V/. In the emergency room, initial temperature was 98.2, temperature went to 102.1. Initial heart rate 99, respiration 18, blood pressure 187/92. Initial white count 8.9. Hemoglobin 5.9. Creatinine 14. BMP 28,000. Chest x-ray showed prominence of interstitial markings bilaterally. Microbiology: Blood cultures: 06/07 ngtd Urine cultures: Respiratory cultures: Current Antimicrobials: prezcobix+lamivudine+viread Previous Antimicrobials: Past History Past Medical History: HIV/AIDS, renal failure, other (depression, asthma) Past Surgical History: Other (Brain aneurysm s/p coil, AV graft) Social history: smoking (/2 PPD), full code. denies: alcohol abuse, prescription drug abuse, IV drug use Family history: other (CKD, mom / Grand mother) Medications and Allergies Allergies Allergy/AdvReac Type Severity Reaction Status Date / Time No Known Allergies Allergy Verified 06/07/17 04:32 Active Meds: Active Medications Acetaminophen (Tylenol) 650 mg PO Q6H PRN PRN Reason: Pain, Mild (1-3) Last Admin: 06/07/17 18:25 Dose: 650 mg Albuterol (Proventil) 2.5 mg IH Q4HRT PRN PRN Reason: Shortness Of Breath Citalopram Hydrobromide (Celexa) 10 mg PO QDAY [facility] Last Admin: 06/07/17 21:53 Dose: 10 mg Folic Acid (Folvite) 1 mg PO QDAY [facility] Last Admin: 06/07/17 21:54 Dose: 1 mg Heparin Sodium (Porcine) (Heparin) 5,000 unit SUB-Q Q8HR [facility] Last Admin: 06/08/17 06:28 Dose: 5,000 unit Sodium Chloride (Nacl 0.9%) 100 mls @ 999 mls/hr IV CHRISSIE PRN PRN Reason: Hypotension Lamivudine (Epivir) 150 mg PO MoWeFr [facility] Levothyroxine Sodium (Synthroid) 25 mcg PO DAILY@0600 [facility] Last Admin: 06/08/17 06:27 Dose: 25 mcg Lisinopril (Zestril) 20 mg PO QDAY [facility] Last Admin: 06/07/17 18:25 Dose: 20 mg Metoprolol Tartrate (Lopressor) 25 mg PO BID [facility] Last Admin: 06/07/17 21:53 Dose: 25 mg Miscellaneous Medication (Cobicistat-Darunavir) 1 tab PO DAILY [facility] Tenofovir Disoproxil Fumarate (Viread) 300 mg PO Fr [facility] Review of Systems All systems: negative (as per HPI) Physical Examination - Physical Exam Narrative exam: General appearance: Alert in NAD, conversant Eyes: anicteric sclerae, moist conjunctivae; no lid-lag; PERRLA HENT: Atraumatic; oropharynx clear Neck: Trachea midline; supple, no thyromegaly or lymphadenopathy Lungs: jules crackles CV: RRR Abdomen: Soft, non-tender; no masses or hepatosplenomegaly Extremities: No peripheral edema or extremity lymphadenopathy Skin: Normal temperature, turgor and texture; no rash, ulcers or subcutaneous nodules Psych: Appropriate affect, alert and oriented to person, place and time. Neuro: alert and oriented x 3. Moving all extermities Lines: No CVL / PICC - Constitutional Vitals: Vital Signs Temp Pulse Resp BP Pulse Ox 98.9 F 93 H 18 142/79 92 06/08/17 07:48 06/08/17 07:48 06/08/17 07:48 06/08/17 07:48 06/08/17 07:48 Temperature -Last 24 Hours Temperature 98.9 F Temperature 97.4 F Temperature 102.1 F Temperature 99.0 F Results - Labs CBC & Chem 7: 06/08/17 13:23 06/07/17 04:45 Labs: Abnormal lab results 06/07/17 06/07/17 06/08/17 Range/Units 00:00 16:15 05:15 Hgb 7.4 L 8.9 L D 7.4 L (10.1-14.3) gm/dl Hct 20.6 L 25.4 L D 21.3 L (30.3-42.9) % 06/08/17 Range/Units 13:23 Hgb 7.9 L (10.1-14.3) gm/dl Hct 22.5 L (30.3-42.9) % Assessment and Plan Assessment: 1) SIRS: Present on admission, manifested by fever, tachycardia. Etiology unclear ? pneumonia ?opportunistic infection 2) HIV/AIDS since 1997, followed at [place], [place], moved to [place] in Apr 2017, she stopped her ART (prezcobix+lamivudine+viread) after moving, she has not established HIV care in [place] 3) ESRD on hemodialysis 4) Severe anemia Plan: -obtain CT chest eval for pneumonia/cavities -follow-up blood cultures -obtain respiratory cultures, C-reactive protein (CRP) -check influenza antigen PCR in nasopharinx -check quatiferon TB gold, cryptoccal serum antigen, AFB x 3 -CD4, HIV-viral load -add levaquin renally dosed -add atovaquone -continue her baseline ART -airborne isloation for now Thank you Dr Flores for your consultation, will follow up with you. Marisol Rucker MD Infectious Diseases Specialist [facility] M [phone] O [phone]
[2017-06-08 14:23] LABS: % Iron Saturation 20.3 %
[2017-06-08] MEDS ORDERED: LEVAQUIN 750MG/150ML 750 MG/150 ML BAG IV SCH (15:00)
[2017-06-08] MEDS: celeXA PO SCH (16:59)
[2017-06-08] MEDS: FOLVITE PO SCH (16:59)
[2017-06-08 17:09] LABS: Hematocrit 22.8 % (30.3-42.9)
[2017-06-08] MEDS ORDERED: EPIVIR PO SCH (18:00)
[2017-06-08] MEDS ORDERED: VIREAD PO SCH (18:00)
[2017-06-08] MEDS: LOPRESSOR PO SCH ×2 (18:16→21:34)
[2017-06-08] MEDS: ZESTRIL PO SCH (18:17)
[2017-06-08] MEDS: MEPRON PO SCH ×2 (18:18→21:34)
[2017-06-09 06:36] LABS: Basophils # (Auto) 0.1 K/mm3 (0.0-0.1); Basophils % (Auto) 0.9 % (0.0-1.8); Eosinophils # (Auto) 0.1 K/mm3 (0.0-0.4); Eosinophils % (Auto) 1.6 % (0.0-4.3); Hematocrit 22.4 % (30.3-42.9); Lymphocytes # (Auto) 0.7 K/mm3 (1.2-5.4); Lymphocytes % (Auto) 12.3 % (13.4-35.0); Mean Corpuscular HGB Conc 36 % (30-34); Mean Corpuscular Hemoglobin 31 pg (28-32); Mean Corpuscular Volume 88 fl (79-97); Monocytes # (Auto) 0.4 K/mm3 (0.0-0.8); Monocytes % (Auto) 6.7 % (0.0-7.3); Platelet Count 263 K/mm3 (140-440); Red Blood Count 2.56 M/mm3 (3.65-5.03); Red Cell Distribution Width 15.7 % (13.2-15.2)
[2017-06-09] MEDS: HEPARIN SUB-Q SCH ×3 (06:38→23:59)
[2017-06-09] MEDS: SYNTHROID PO SCH (06:38)
[2017-06-09 06:53] LABS: Calcium 9.9 mg/dL (8.4-10.2)
[2017-06-09] MEDS: MEPRON PO SCH ×2 (10:30→23:58)
[2017-06-09] MEDS: FOLVITE PO SCH (10:31)
[2017-06-09] MEDS: celeXA PO SCH (10:31)
--- NOTE | 2017-06-09 11:20 | Cat Scan Report ---
CT scan of chest with and without IV contrast: History: A discrete cough evaluation for cavities, PCP, pneumonia Findings: No endobronchial lesion. No mediastinal mass. Mediastinal and aorticopulmonary window lymph nodes measure subcentimeter with maximum diameter of 1 cm in pretracheal region. No pleural or pericardial effusion. Minimal pericardial thickening. Large ill-defined area of consolidation left lower lobe. Patchy scattered ill-defined airspace opacities right upper and lower lobe. Airspace opacities left upper lobe lingula of left lung and left lower lobe. No cavitary lesion identified. Impression: Mediastinal lymph nodes may be reactive. Bilateral pneumonia.
--- NOTE | 2017-06-09 12:03 | Progress Note ---
Assessment and Plan Assessment: 1) SIRS: better, fever trending down. Etiology - pneumonia . CRP=32 2) HIV/AIDS since 1997, followed at [place], [place], moved to [place] in Apr 2017, she stopped her ART (prezcobix+lamivudine+viread) after moving, she has not established HIV care in [place] 3) ESRD on hemodialysis 4) Severe anemia 5) Bilateral pneumonia: DDx ? PCP ? CAP. CT showed bilateral consolidations, no cavities. PPD negative 4 weeks ago. Plan: -follow-up blood cultures and respiratory cultures and influenza antigen PCR in nasopharinx -follow-up quatiferon TB gold, cryptococcal serum antigen -follow-up CD4, HIV-viral load -continue levaquin renally dosed -continue atovaquone for PCP -continue her baseline ART -STOP airborne isloation I will be off tomorrow covering over the phone Thank you Dr Holden for your consultation, will follow up with you. Marisol Rucker MD Infectious Diseases Specialist [facility] M [phone] O [phone] Subjective Date of service: 06/09/17 Principal diagnosis: SIRS/HIV Interval history: Feels better, cough is better, tmax 100.5 Microbiology: Blood cultures: 06/07 ngtd Urine cultures: Respiratory cultures: Current Antimicrobials: prezcobix+lamivudine+viread levaquin / mepron /5 Previous Antimicrobials: Objective - Exam Narrative Exam: General appearance: Alert in NAD, conversant Eyes: anicteric sclerae, moist conjunctivae; no lid-lag; PERRLA HENT: Atraumatic; oropharynx clear Neck: Trachea midline; supple, no thyromegaly or lymphadenopathy Lungs: jules crackles CV: RRR Abdomen: Soft, non-tender; no masses or hepatosplenomegaly Extremities: No peripheral edema or extremity lymphadenopathy Skin: Normal temperature, turgor and texture; no rash, ulcers or subcutaneous nodules Psych: Appropriate affect, alert and oriented to person, place and time. Neuro: alert and oriented x 3. Moving all extermities Lines: No CVL / PICC - Constitutional Vitals: Vital Signs Temp Pulse Resp BP Pulse Ox 98.1 F 90 16 122/69 97 06/09/17 08:22 06/09/17 08:22 06/09/17 08:22 06/09/17 08:22 06/09/17 08:22 Temperature -Last 24 Hours Temperature 98.1 F Temperature 99.3 F Temperature 100.5 F - Labs CBC & Chem 7: 06/09/17 06:17 06/09/17 06:17 Labs: Abnormal lab results 06/08/17 06/08/17 06/08/17 Range/Units 13:23 13:23 13:23 RBC (3.65-5.03) M/mm3 Hgb 7.9 L (10.1-14.3) gm/dl Hct 22.5 L (30.3-42.9) % MCHC (30-34) % RDW (13.2-15.2) % Lymph % (Auto) (13.4-35.0) % Lymph # (1.2-5.4) K/mm3 Seg Neutrophils % (40.0-70.0) % Sodium (137-145) mmol/L Chloride (98-107) mmol/L BUN (7-17) mg/dL Creatinine (0.7-1.2) mg/dL Iron 27 L (37-170) ug/dL TIBC 133 L (250-450) mcg/dL Transferrin 119 L (192-382) mg/dl Ferritin 3177.0 H (13.0-400.0) ng/mL C-Reactive Protein (0.00-1.30) mg/dL Vitamin B12 (211-911) pg/mL 06/08/17 06/08/17 06/08/17 Range/Units 13:23 16:29 16:29 RBC (3.65-5.03) M/mm3 Hgb 8.0 L (10.1-14.3) gm/dl Hct 22.8 L (30.3-42.9) % MCHC (30-34) % RDW (13.2-15.2) % Lymph % (Auto) (13.4-35.0) % Lymph # (1.2-5.4) K/mm3 Seg Neutrophils % (40.0-70.0) % Sodium (137-145) mmol/L Chloride (98-107) mmol/L BUN (7-17) mg/dL Creatinine (0.7-1.2) mg/dL Iron (37-170) ug/dL TIBC (250-450) mcg/dL Transferrin (192-382) mg/dl Ferritin (13.0-400.0) ng/mL C-Reactive Protein 32.70 H (0.00-1.30) mg/dL Vitamin B12 948.0 H (211-911) pg/mL 06/09/17 06/09/17 Range/Units 06:17 06:17 RBC 2.56 L (3.65-5.03) M/mm3 Hgb 8.0 L (10.1-14.3) gm/dl Hct 22.4 L (30.3-42.9) % MCHC 36 H (30-34) % RDW 15.7 H (13.2-15.2) % Lymph % (Auto) 12.3 L (13.4-35.0) % Lymph # 0.7 L (1.2-5.4) K/mm3 Seg Neutrophils % 78.5 H (40.0-70.0) % Sodium 131 L (137-145) mmol/L Chloride 90.4 L (98-107) mmol/L BUN 27 H (7-17) mg/dL Creatinine 8.9 H (0.7-1.2) mg/dL Iron (37-170) ug/dL TIBC (250-450) mcg/dL Transferrin (192-382) mg/dl Ferritin (13.0-400.0) ng/mL C-Reactive Protein (0.00-1.30) mg/dL Vitamin B12 (211-911) pg/mL
[2017-06-09] MEDS: LOPRESSOR PO SCH ×2 (12:20→23:58)
[2017-06-09] MEDS: ZESTRIL PO SCH (12:24)
--- NOTE | 2017-06-09 12:45 | Progress Note ---
Subjective Principal diagnosis: SIRS/HIV Interval history: Patient was seen today for follow-up on multiple renal related issues patient denies any weakness chest pain pressure or shortness of breath She is feeling much better after packed red blood cell transfusion and is willing to follow up with consultants Vitals labs intake output medications were reviewed Social history: Reviewed Allergies: Reviewed Family history: Reviewed Physical examination HEENT: Oral mucosa moist no pallor or icterus Neck: Supple no JVD Chest: Clear to auscultation anteriorly CVS: Regular rate and rhythm S1 and S2 heard Abdomen: Soft nontender no suprapubic masses no organomegaly appreciable Extremity: Dry skin less than 1+ peripheral edema Musculoskeletal: No joint effusion noted in knees and ankle Neurological: Alert awake Dermatology: No petechial rashes Psychiatry: No evidence of any agitation and aggression noted Assessment and plan End-stage renal disease: Continue with hemodialysis on Sunday schedule Outpatient dialysis Sunday Anemia and end-stage renal disease: Status post packed red blood cell transfusion we'll need to follow up with hematology and GI in the outpatient setting Overall she is feeling much better if stable postdialysis she can be considered for discharge to follow up with me in the office in 1-2 weeks HIV disease patient needs to be seen and followed by infectious disease Pertinent lab findings were discussed with patient, patient does exhibit good understanding of renal issues We'll continue to follow and make recommendation from renal standpoint Objective - Vital Signs Vital signs: Vital Signs - 12hr 06/09/17 08:22 Temperature 98.1 F Pulse Rate 90 Respiratory 16 Rate Blood Pressure 122/69 O2 Sat by Pulse 97 Oximetry - Lab 06/09/17 06:17 06/09/17 06:17 Most recent lab results Calcium 9.9 mg/dL (8.4-10.2) 06/09/17 06:17
--- NOTE | 2017-06-09 13:16 | Hem/Onc Progress Note ---
Subjective Date of service: 06/09/17 Interval history: Patient reports feeling better since dialysis 2 days ago Ferritin > 3000 rules out iron def - anemia may be related to underlying HIV - the status of this is unknown Objective - Constitutional Vitals: Last Vital Signs Temp 98.1 F 06/09/17 08:22 Pulse 90 06/09/17 08:22 Resp 16 06/09/17 08:22 BP 122/69 06/09/17 08:22 Pulse Ox 97 06/09/17 08:22 Pain Intensity (0-10): denies any pain General appearance: no acute distress Performance status: 1-light work, ambulatory - EENT Eyes: PERRL, EOM intact ENT: hearing intact, clear oral mucosa, dentition normal - Neck Neck: supple, normal ROM - Respiratory Respiratory: bilateral: CTA - Cardiovascular Rhythm: regular Extremities: No edema - Genitourinary Female genitourinary: Present: normal - Integumentary Integumentary: clear, warm - Labs Lab Results: Laboratory Results - last 24 hr 06/08/17 06/08/17 06/08/17 13:23 13:23 13:23 WBC RBC Hgb 7.9 L Hct 22.5 L MCV MCH MCHC RDW Plt Count Lymph % (Auto) [place] % (Auto) Eos % (Auto) Baso % (Auto) Lymph # [place] # Eos # Baso # Seg Neutrophils % Seg Neutrophils # Sodium Potassium Chloride Carbon Dioxide Anion Gap BUN Creatinine Estimated GFR BUN/Creatinine Ratio Glucose Calcium Iron 27 L TIBC 133 L % Saturation 20.30 Transferrin 119 L Ferritin Lactate Dehydrogenase 117 C-Reactive Protein Vitamin B12 Folate Schistocytes Smear None seen 06/08/17 06/08/17 06/08/17 13:23 13:23 13:23 WBC RBC Hgb Hct MCV MCH MCHC RDW Plt Count Lymph % (Auto) [place] % (Auto) Eos % (Auto) Baso % (Auto) Lymph # [place] # Eos # Baso # Seg Neutrophils % Seg Neutrophils # Sodium Potassium Chloride Carbon Dioxide Anion Gap BUN Creatinine Estimated GFR BUN/Creatinine Ratio Glucose Calcium Iron TIBC % Saturation Transferrin Ferritin 3177.0 H Lactate Dehydrogenase C-Reactive Protein Vitamin B12 948.0 H Folate 17.72 Schistocytes Smear 06/08/17 06/08/17 06/09/17 16:29 16:29 06:17 WBC 5.9 RBC 2.56 L Hgb 8.0 L 8.0 L Hct 22.8 L 22.4 L MCV 88 MCH 31 MCHC 36 H RDW 15.7 H Plt Count 263 Lymph % (Auto) 12.3 L [place] % (Auto) 6.7 Eos % (Auto) 1.6 Baso % (Auto) 0.9 Lymph # 0.7 L [place] # 0.4 Eos # 0.1 Baso # 0.1 Seg Neutrophils % 78.5 H Seg Neutrophils # 4.6 Sodium Potassium Chloride Carbon Dioxide Anion Gap BUN Creatinine Estimated GFR BUN/Creatinine Ratio Glucose Calcium Iron TIBC % Saturation Transferrin Ferritin Lactate Dehydrogenase C-Reactive Protein 32.70 H Vitamin B12 Folate Schistocytes Smear 06/09/17 06:17 WBC RBC Hgb Hct MCV MCH MCHC RDW Plt Count Lymph % (Auto) [place] % (Auto) Eos % (Auto) Baso % (Auto) Lymph # [place] # Eos # Baso # Seg Neutrophils % Seg Neutrophils # Sodium 131 L Potassium 5.0 Chloride 90.4 L Carbon Dioxide 23 Anion Gap 23 BUN 27 H Creatinine 8.9 H Estimated GFR 5 BUN/Creatinine Ratio 3 Glucose 99 Calcium 9.9 Iron TIBC % Saturation Transferrin Ferritin Lactate Dehydrogenase C-Reactive Protein Vitamin B12 Folate Schistocytes Smear
--- NOTE | 2017-06-09 13:32 | Progress Note ---
Assessment and Plan Assessment and plan: 47-year-old -[place] female with past medical history significant for ESRD on hemodialysis, HIV/AIDS, hypothyroidism, depression. Emergency department complaining of generalized weakness. Patient has been HER home medication for woman's Symptomatic anemia - Likely due to anemia of chronic illness - Patient was transfused with 2 units of blood and posttransfusion hemoglobin is 8 - GI and hematology consult appreciated - need follow up as an O/P ESRD on hemodialysis - Nephrology was consulted and patient will continue hemodialysis as scheduled HIV-AIDS - Home medications were started - ID consulted to adjust her medications - On atovaquone - Patient needs to establish HIV treatment Bilateral pneumonia - CT chest done and showed bilateral pneumonia, no PE - Patient is on renally dosed Levaquin Depression - Continue medications Hypertension -Continue home medications Prophylaxis -Heparin Disposition -Possible discharge tomorrow if the patient becomes fever free. History Interval history: patient was seen and evaluated this morning, no new complaints. Patient said she is feeling better. Patient had episode of fever 100.5 overnight. Hospitalist Physical - Physical exam Narrative exam: Not in cardiopulmonary distress. The patient appeared well nourished and normally developed. Vital signs as documented. Head exam is unremarkable. No scleral icterus . Neck is without jugular venous distension, thyromegaly, or carotid bruits. Lungs are clear to auscultation. Cardiac exam reveals regular rate and Rhythm. First and second heart sounds normal. No murmurs, rubs or gallops. Abdominal exam reveals normal bowel sounds, no masses, no organomegaly and no aortic enlargement. Extremities are nonedematous and both femoral and pedal pulses are normal. GOLD BURNISHER: Alert and oriented 3. No focal weakness. - Constitutional Vitals: Temp Pulse Resp BP Pulse Ox 98.1 F 90 16 122/69 97 06/09/17 08:22 06/09/17 08:22 06/09/17 08:22 06/09/17 08:22 06/09/17 08:22 Results - Labs CBC & Chem 7: 06/09/17 06:17 06/09/17 06:17 Labs: Laboratory Last Values WBC 5.9 K/mm3 (4.5-11.0) 06/09/17 06:17 RBC 2.56 M/mm3 (3.65-5.03) L 06/09/17 06:17 Hgb 8.0 gm/dl (10.1-14.3) L 06/09/17 06:17 Hct 22.4 % (30.3-42.9) L 06/09/17 06:17 MCV 88 fl (79-97) 06/09/17 06:17 MCH 31 pg (28-32) 06/09/17 06:17 MCHC 36 % (30-34) H 06/09/17 06:17 RDW 15.7 % (13.2-15.2) H 06/09/17 06:17 Plt Count 263 K/mm3 (140-440) 06/09/17 06:17 Lymph % (Auto) 12.3 % (13.4-35.0) L 06/09/17 06:17 [place] % (Auto) 6.7 % (0.0-7.3) 06/09/17 06:17 Eos % (Auto) 1.6 % (0.0-4.3) 06/09/17 06:17 Baso % (Auto) 0.9 % (0.0-1.8) 06/09/17 06:17 Lymph # 0.7 K/mm3 (1.2-5.4) L 06/09/17 06:17 [place] # 0.4 K/mm3 (0.0-0.8) 06/09/17 06:17 Eos # 0.1 K/mm3 (0.0-0.4) 06/09/17 06:17 Baso # 0.1 K/mm3 (0.0-0.1) 06/09/17 06:17 Seg Neutrophils % 78.5 % (40.0-70.0) H 06/09/17 06:17 Seg Neutrophils # 4.6 K/mm3 (1.8-7.7) 06/09/17 06:17 PT 15.7 Sec. (12.2-14.9) H 06/07/17 08:28 INR 1.19 (0.87-1.13) H 06/07/17 08:28 APTT 37.9 Sec. (24.2-36.6) H 06/07/17 08:28 Sodium 131 mmol/L (137-145) L 06/09/17 06:17 Potassium 5.0 mmol/L (3.6-5.0) 06/09/17 06:17 Chloride 90.4 mmol/L (98-107) L 06/09/17 06:17 Carbon Dioxide 23 mmol/L (22-30) 06/09/17 06:17 Anion Gap 23 mmol/L 06/09/17 06:17 BUN 27 mg/dL (7-17) H 06/09/17 06:17 Creatinine 8.9 mg/dL (0.7-1.2) H 06/09/17 06:17 Estimated GFR 5 ml/min 06/09/17 06:17 BUN/Creatinine Ratio 3 % 06/09/17 06:17 Glucose 99 mg/dL (65-100) 06/09/17 06:17 Calcium 9.9 mg/dL (8.4-10.2) 06/09/17 06:17 Iron 27 ug/dL (37-170) L 06/08/17 13:23 TIBC 133 mcg/dL (250-450) L 06/08/17 13:23 % Saturation 20.30 % 06/08/17 13:23 Transferrin 119 mg/dl (192-382) L 06/08/17 13:23 Ferritin 3177.0 ng/mL (13.0-400.0) H 06/08/17 13:23 Lactate Dehydrogenase 117 units/L (91-180) 06/08/17 13:23 Troponin T < 0.010 ng/mL (0.00-0.029) 06/07/17 04:45 C-Reactive Protein 32.70 mg/dL (0.00-1.30) H 06/08/17 16:29 NT-Pro-B Natriuret Pep 29718 pg/mL (0-450) H 06/07/17 04:45 Vitamin B12 948.0 pg/mL (211-911) H 06/08/17 13:23 Folate 17.72 ng/mL (7.3-26.0) 06/08/17 13:23 Schistocytes Smear None seen 06/08/17 13:23 Blood Type A POSITIVE 06/07/17 08:28 Antibody Screen Negative 06/07/17 08:28 Crossmatch See Detail 06/07/17 08:28
[2017-06-09] MEDS ORDERED: NACL 0.9% 100 ML IV PRN (17:32)
[2017-06-10] MEDS: SYNTHROID PO SCH (06:52)
[2017-06-10] MEDS: HEPARIN SUB-Q SCH ×2 (06:53→16:27)
--- NOTE | 2017-06-10 07:37 | Progress Note ---
Subjective Principal diagnosis: SIRS/HIV Interval history: Patient was seen today for follow-up on multiple renal related issues patient denies any weakness chest pain pressure or shortness of breath She is feeling much better after packed red blood cell transfusion and is willing to follow up with consultants she wants to go home she did receive her hemodialysis treatment yesterday Vitals labs intake output medications were reviewed Social history: Reviewed Allergies: Reviewed Family history: Reviewed Physical examination HEENT: Oral mucosa moist no pallor or icterus Neck: Supple no JVD Chest: Clear to auscultation anteriorly CVS: Regular rate and rhythm S1 and S2 heard Abdomen: Soft nontender no suprapubic masses no organomegaly appreciable Extremity: Dry skin less than 1+ peripheral edema Musculoskeletal: No joint effusion noted in knees and ankle Neurological: Alert awake Dermatology: No petechial rashes Psychiatry: No evidence of any agitation and aggression noted Assessment and plan End-stage renal disease: Continue with hemodialysis on Sunday schedule, patient did dialyze yesterday and tolerated very well Outpatient dialysis Sunday she will continue with that in the outpatient setting at [place] Anemia and end-stage renal disease: Status post packed red blood cell transfusion we'll need to follow up with hematology and GI in the outpatient setting Overall she is feeling much better if stable postdialysis she can be considered for discharge to follow up with me in the office in 1-2 weeks HIV disease patient needs to be seen and followed by infectious disease Pertinent lab findings were discussed with patient, patient does exhibit good understanding of renal issues she is stable from a renal standpoint to discharge today We'll continue to follow and make recommendation from renal standpoint Objective - Vital Signs Vital signs: Vital Signs - 12hr 06/09/17 06/09/17 06/09/17 19:45 20:00 20:15 Temperature Pulse Rate 96 H 92 H 96 H Respiratory Rate Blood Pressure 137/83 142/79 140/84 O2 Sat by Pulse Oximetry 06/09/17 06/09/17 06/09/17 20:30 20:45 21:00 Temperature Pulse Rate 98 H 97 H 98 H Respiratory Rate Blood Pressure 146/79 143/79 130/76 O2 Sat by Pulse Oximetry 06/09/17 06/09/17 06/09/17 21:15 21:39 22:48 Temperature 98.8 F 98.2 F Pulse Rate 102 H 103 H 104 H Respiratory 20 16 Rate Blood Pressure 159/84 156/79 128/68 O2 Sat by Pulse 95 Oximetry 06/09/17 23:58 Temperature Pulse Rate 103 H Respiratory Rate Blood Pressure 156/79 O2 Sat by Pulse Oximetry - Lab 06/10/17 07:19 06/09/17 06:17 Most recent lab results Calcium 9.9 mg/dL (8.4-10.2) 06/09/17 06:17
[2017-06-10 08:08] LABS: Hemoglobin 8.3 gm/dl (10.1-14.3)
[2017-06-10] MEDS: MEPRON PO SCH (10:16)
[2017-06-10] MEDS: LOPRESSOR PO SCH (10:16)
[2017-06-10] MEDS: celeXA PO SCH (10:16)
[2017-06-10] MEDS: FOLVITE PO SCH (10:16)
[2017-06-10] MEDS: ZESTRIL PO SCH (10:17)
--- NOTE | 2017-06-10 10:50 | Progress Note ---
Assessment and Plan Assessment and Plan Assessment and plan: 47-year-old -[place] female with past medical history significant for ESRD on hemodialysis, HIV/AIDS, hypothyroidism, depression. Emergency department complaining of generalized weakness. Patient has been HER home medication for woman's Symptomatic anemia - Likely due to anemia of chronic illness - Patient was transfused with 2 units of blood and posttransfusion hemoglobin is 8 - GI and hematology consult appreciated - need follow up as an O/P ESRD on hemodialysis - Nephrology was consulted and patient will continue hemodialysis as scheduled HIV-AIDS - Home medications were started - ID consulted to adjust her medications - On atovaquone - Patient needs to establish HIV treatment Bilateral pneumonia - CT chest done and showed bilateral pneumonia, no PE - Patient is on renally dosed Levaquin Depression - Continue medications Hypertension -Continue home medications Prophylaxis -Heparin Disposition -Possible discharge tomorrow if the patient becomes fever free. Subjective Date of service: 06/10/17 Principal diagnosis: SIRS/HIV Objective - Constitutional Vitals: Vital Signs - 12hr 06/09/17 06/10/17 23:58 08:19 Temperature 98.0 F Pulse Rate 103 H 92 H Respiratory 16 Rate Blood Pressure 156/79 122/69 O2 Sat by Pulse 96 Oximetry General appearance: Present: no acute distress, well-nourished - EENT Eyes: PERRL, EOM intact ENT: hearing intact, clear oral mucosa Ears: bilateral: normal - Neck Neck: supple, normal ROM - Respiratory Respiratory effort: normal Respiratory: bilateral: CTA - Breasts Breasts: normal - Cardiovascular Rhythm: regular Heart Sounds: Present: S1 & S2. Absent: gallop, rub Extremities: pulses intact, No edema, normal color, Full ROM - Gastrointestinal General gastrointestinal: Present: soft, non-tender, non-distended, normal bowel sounds - Genitourinary Female genitourinary: normal - Integumentary Integumentary: clear, warm, dry - Musculoskeletal Musculoskeletal: 1, strength equal bilaterally - Neurologic Neurologic: moves all extremities - Psychiatric Psychiatric: memory intact, appropriate mood/affect, intact judgment & insight - Labs CBC & Chem 7: 06/10/17 07:19 06/09/17 06:17 Labs: Abnormal lab results 06/10/17 Range/Units 07:19 Hgb 8.3 L (10.1-14.3) gm/dl Hct 24.0 L (30.3-42.9) %
--- NOTE | 2017-06-10 13:05 | Discharge Summary ---
Providers - Providers Date of Admission: 06/07/17 15:14 Date of discharge: 06/10/17 Attending physician: LIZBETH CRAWLEY 06/07/17 09:59 Consult to Physician [CONS] Urgent Consulting Provider: JOSSE JACKSON Reason For Exam: esrd, anemia, missed dialysis Place consult to:: [facility] Notified:: elfego 06/07/17 17:47 Consult to Physician [CONS] Routine Consulting Provider: JW PATEL Reason For Exam: HIV/ AIDS, to adjust medications Place consult to:: ID/DR. BROOKS Notified:: DR. BROOKS Phone number called:: [phone] Was contact made?: Yes If yes, spoke with:: DR. BROOKS Time called:: 18:15 Comment:: ROGER NOTIFIED 06/08/17 11:23 Consult to Physician [CONS] Routine Consulting Provider: MARKY HILL Reason For Exam: severe anemia Place consult to:: mandeep gastelum Notified:: yes Was contact made?: Yes If yes, spoke with:: Dr Hill Time called:: 11:52 Comment:: DR Hill states that he already saw this patient 06/08/17 11:24 Consult to Physician [CONS] Routine Consulting Provider: AVRIL BRIONES Reason For Exam: severe anemia Place consult to:: [place] Notified:: yes Phone number called:: [phone] If yes, spoke with:: Yara Comment:: per nehrology request Primary care physician: H[facility] SHEARER Hospitalization Condition: Stable Hospital course: Hospital course 47-year-old -[place]ian female with past medical history significant for ESRD on hemodialysis, HIV/AIDS, hypothyroidism, depression. Emergency department complaining of generalized weakness. Symptomatic anemia - Likely due to anemia of chronic illness - Patient was transfused with 2 units of blood and posttransfusion hemoglobin is 8 - GI and hematology consult appreciated - need follow up as an O/P ESRD on hemodialysis - Nephrology was consulted and patient will continue hemodialysis as scheduled HIV-AIDS - Home medications were started - ID consulted to adjust her medications - On atovaquone - Patient needs to establish HIV treatment Bilateral pneumonia - CT chest done and showed bilateral pneumonia, no PE - Patient is on renally dosed Levaquin--Cont po Levaquin Depression - Continue medications Hypertension -Continue home medications -discharge today-Patient is afebrile for 48 hrs Disposition: DC-01 TO HOME OR SELFCARE Time spent for discharge: 32 minutes - Discharge Diagnoses (1) ESRD needing dialysis Status: Acute Comment: Cont HD as outpatient (2) Symptomatic anemia Status: Chronic Comment: Transfused 2 units Core Measure Documentation - Palliative Care Palliative Care/ Comfort Measures: Not Applicable - Core Measures Any of the following diagnoses?: none Exam - Constitutional Vitals: Temp Pulse Resp BP Pulse Ox 98.0 F 92 H 16 122/69 96 06/10/17 08:19 06/10/17 08:19 06/10/17 08:19 06/10/17 08:19 06/10/17 08:19 General appearance: Present: no acute distress, well-nourished - EENT Eyes: Present: PERRL ENT: hearing intact, clear oral mucosa - Neck Neck: Present: supple, normal ROM - Respiratory Respiratory effort: normal Respiratory: bilateral: CTA - Cardiovascular Heart rate: 60 Rhythm: regular Heart Sounds: Present: S1 & S2. Absent: rub, click - Extremities Extremities: no ischemia, pulses intact, pulses symmetrical, No edema Peripheral Pulses: within normal limits - Abdominal General gastrointestinal: Present: soft, non-tender, non-distended, normal bowel sounds Female genitourinary: Present: normal - Integumentary Integumentary: Present: clear, warm, dry - Musculoskeletal Musculoskeletal: gait normal, strength equal bilaterally - Psychiatric Psychiatric: appropriate mood/affect, intact judgment & insight - Neurologic Neurologic: CNII-XII intact, moves all extremities - Allied Health Allied health notes reviewed: nursing, case management Plan Activity: no restrictions Diet: renal Follow up with: PRIMARY CAREMD [Primary Care Provider] - 3-5 Days
--- NOTE | 2017-06-10 14:06 | Hem/Onc Progress Note ---
Subjective Date of service: 06/10/17 Interval history: Patient resting comfortably. Counts are stable Anemia likely related to HIV and renal failure. Objective - Constitutional Vitals: Last Vital Signs Temp 98.0 F 06/10/17 08:19 Pulse 92 H 06/10/17 08:19 Resp 16 06/10/17 08:19 BP 122/69 06/10/17 08:19 Pulse Ox 96 06/10/17 08:19 - Labs Lab Results: Laboratory Results - last 24 hr 06/10/17 07:19 Hgb 8.3 L Hct 24.0 L
[2017-06-10 16:19] VITALS: BP 131/75
[2017-06-10] MEDS ORDERED: LEVAQUIN PO SCH (22:00)
[2017-06-12 08:50] LABS: HIV-1 RNA QN PCR 3.21 Log cps/mL (<1.30)
[2017-06-12 20:37] LABS: CD4/CD8 Ratio 0.69 (0.86-5.00)
== END 2017-06-10 17:15 | disposition home or self-care (01) | DRG 682 ==
LOC: ED 04:12 → DIA 12:26 → 3A 15:14
PROVIDERS: ADMIT Internal Medicine; ATTEND Internal Medicine
PROC: 30233N1 Transfusion of Nonautologous Red Blood Cells into Peripheral Vein, Percutaneous Approach (ICD-10-PCS; principal; 2017-06-07)
PROC: 5A1D70Z Performance of Urinary Filtration, Intermittent, Less than 6 Hours Per Day (ICD-10-PCS; 2017-06-07)
PROC: 5A1D70Z Performance of Urinary Filtration, Intermittent, Less than 6 Hours Per Day (ICD-10-PCS; 2017-06-09)
DX: I12.0 Hypertensive chronic kidney disease with stage 5 chronic kidney disease or end stage renal disease (principal); N18.6 End stage renal disease; B20 Human immunodeficiency virus [HIV] disease; J18.9 Pneumonia, unspecified organism; N25.81 Secondary hyperparathyroidism of renal origin; R65.10 Systemic inflammatory response syndrome (SIRS) of non-infectious origin without acute organ dysfunction; Z99.2 Dependence on renal dialysis; E03.9 Hypothyroidism, unspecified; F32.9 Major depressive disorder, single episode, unspecified; F17.200 Nicotine dependence, unspecified, uncomplicated; J45.909 Unspecified asthma, uncomplicated; D63.1 Anemia in chronic kidney disease
CPT/HCPCS: 36415; 36430; 71046; 71270; 80048; 82024; 82271; 82607; 82728; 82747; 83550; 83615; 83880; 84484; 85014; 85018; 85025; 85610; 85730; 86140; 86850; 86900; 86901; 86920; 87040; 87536; 93005; 93010; J1644; J1956; P9016; Q9967

== ENCOUNTER 2018-11-21 10:54 | Outpatient (CLI) | payer MEDICAID ==
[2018-11-21] MEDS ORDERED: LEXISCAN IV ONE (13:20)
[2018-11-21 14:38] VITALS: BP 157/84
--- NOTE | 2018-11-22 03:04 | Treadmill Report ---
THALLIUM STRESS TEST LEFT VENTRICLE: Left ventricular chamber size is within normal spread. Perfusion study demonstrates homogeneous uptake of the tracer in all segments, no significant perfusion defects identified. Gated analysis demonstrates normal left ventricular systolic function, ejection fraction of 63%. CONCLUSION: Normal myocardial perfusion study. JOB# [id number] CA/NTS
== END 2018-11-21 10:55 | disposition home or self-care (01) ==
LOC: CARD 10:54
PROVIDERS: ATTEND Internal Medicine Cardiovascular Disease
DX: I48.0 Paroxysmal atrial fibrillation (principal)
CPT/HCPCS: 78452; 93017; A9502; J2785

== ENCOUNTER 2019-02-01 18:07 | Emergency (ER) | payer MEDICAID ==
--- NOTE | 2019-02-01 18:22 | Event Note ---
ED Screening Note Date of service: 02/01/19 Time: 18:16 ED Screening Note: 48 y o presents with abd pain with n/v/d This initial assessment/diagnostic orders/clinical plan/treatment(s) is/are subject to change based on patients health status, clinical progression and re- assessment by fellow clinical providers in the ED. Further treatment and workup at subsequent clinical providers discretion. Patient/guardian urged not to elope from the ED as their condition may be serious if not clinically assessed and managed. Initial orders include:
[2019-02-01 19:27] LABS: Calcium 10.6 mg/dL (8.4-10.2)
[2019-02-01 19:30] LABS: Hematocrit 28.9 % (30.3-42.9); Mean Corpuscular HGB Conc 35 % (30-34); Mean Corpuscular Volume 90 fl (79-97); Red Blood Count 3.23 M/mm3 (3.65-5.03); Red Cell Distribution Width 17.9 % (13.2-15.2)
--- NOTE | 2019-02-01 20:00 | Emergency Department Report ---
HPI - General Chief Complaint: Abdominal Pain Time Seen by Provider: 02/01/19 18:16 - HPI HPI: Room 25 The patient is a 48-year-old female presenting with a chief complaint of nausea vomiting diarrhea. The patient states she went to [place] and had a filet of fish today at approximately 14:30. The patient states she felt fine and went home but at 16:41 she was awakened with nausea and vomiting. Patient says she then developed diarrhea and felt weak. Patient says she became diaphoretic, her to come to the emergency department. The patient states her symptoms have resolved and she no longer feels nauseous. Patient denies history of fever. Patient denies recent antibiotic use Location: [See above] Duration: [See above] Quality: [See above] Severity: [See above] Timing: [See above] Context: [See above] Modifying factors: [See above] Associated signs and symptoms: [see above] ED Past Medical Hx - Past Medical History Previous Medical History?: Yes Hx Hypertension: Yes Hx Renal Disease: Yes (dialysis m/w/f) Hx Psychiatric Treatment: Yes (depression) Hx Asthma: Yes Hx HIV: Yes (normal CD4 Fall 2017) Additional medical history: hyperthyroid - Surgical History Past Surgical History?: Yes Additional Surgical History: brain anyerism with coil. graft right upper arm - Family History Family history: no significant - Social History Smoking Status: Current Every Day Smoker (1/2 pack per day) Substance Use Type: Marijuana - Medications Home Medications: Home Medications Medication Instructions Recorded Confirmed Last Taken Type Levothyroxine [Synthroid] 25 mcg PO DAILY@0600 #30 tablet 06/10/17 08/22/18 Unknown Rx Lisinopril [Zestril TAB] 20 mg PO QDAY #30 tablet 06/10/17 08/22/18 Unknown Rx Metoprolol [Lopressor TAB] 25 mg PO BID #60 tablet 06/10/17 08/22/18 Unknown Rx Cinacalcet [Sensipar] 1 each PO DAILY 08/22/18 08/22/18 Unknown History Citalopram 40 mg PO DAILY 08/22/18 08/22/18 Unknown History NIFEdipine [Nifedipine] 1 tab PO HS 08/22/18 08/22/18 Unknown History Nitrofurantoin Potter/M-Cryst 100 mg PO Q12HR #14 capsule 08/22/18 Unknown Rx [Macrobid CAP] Ondansetron [Zofran Odt] 4 mg PO Q8HR PRN #20 tab.rapdis 08/22/18 Unknown Rx Prezcobix 800 mg-150 mg Tablet 1 each PO DAILY 08/22/18 08/22/18 Unknown History lamiVUDine [Epivir] 1 each PO 3XW 08/22/18 08/22/18 Unknown History Dicyclomine [Bentyl] 20 mg PO QID #20 tablet 02/01/19 Unknown Rx Diphenoxylate/Atropine [Lomotil] 1 - 2 tab PO QID PRN #20 tablet 02/01/19 Unknown Rx Ondansetron [Zofran ODT TAB] 8 mg PO Q8HR #20 tab.rapdis 02/01/19 Unknown Rx ED Review of Systems ROS: Stated complaint: N/V Other details as noted in HPI Constitutional: denies: fever Eyes: denies: eye pain ENT: denies: throat pain Respiratory: no symptoms reported Cardiovascular: denies: chest pain Endocrine: no symptoms reported Gastrointestinal: abdominal pain, nausea, vomiting, diarrhea Musculoskeletal: denies: back pain Neurological: denies: headache Physical Exam - Physical Exam Vital Signs: Vital Signs 02/01/19 02/01/19 18:07 19:30 Temperature 98.2 F 99.0 F Pulse Rate 94 H 84 Respiratory 20 20 Rate Blood Pressure 162/84 Blood Pressure 137/80 [Left] O2 Sat by Pulse 100 100 Oximetry Physical Exam: GENERAL: The patient is well-developed well-nourished female lying on stretcher not appearing to be in acute distress. [] HEENT: Normocephalic. Atraumatic. Extraocular motions are intact. Patient has moist mucous membranes. NECK: Supple. Trachea midline CHEST/LUNGS: Clear to auscultation. There is no respiratory distress noted. HEART/CARDIOVASCULAR: Regular. There is no tachycardia. There is no gallop rub or murmur. ABDOMEN: Abdomen is soft, mild left upper periumbilical discomfort to palpation. No rebound or guarding. Patient has normal bowel sounds. There is no abdominal distention. SKIN: There is no rash. There is no edema. There is no diaphoresis. NEURO: The patient is awake, alert, and oriented. The patient is cooperative. The patient has normal speech MUSCULOSKELETAL:There is no evidence of acute injury. ED Course Vital Signs 02/01/19 02/01/19 18:07 19:30 Temperature 98.2 F 99.0 F Pulse Rate 94 H 84 Respiratory 20 20 Rate Blood Pressure 162/84 Blood Pressure 137/80 [Left] O2 Sat by Pulse 100 100 Oximetry ED Medical Decision Making - Lab Data Result diagrams: 02/01/19 18:47 02/01/19 18:47 Laboratory Tests 02/01/19 02/01/19 02/01/19 18:47 18:47 18:47 WBC 7.8 RBC 3.23 L Hgb 10.0 L Hct 28.9 L MCV 90 MCH 31 MCHC 35 H RDW 17.9 H Lymph % (Auto) Taper Operator Potter % (Auto) Taper Operator Eos % (Auto) Taper Operator Baso % (Auto) Taper Operator Lymph # Taper Operator Potter # Taper Operator Eos # Taper Operator Baso # Taper Operator Add Manual Diff Complete Total Counted 100 Seg Neutrophils % Taper Operator Seg Neuts % (Manual) 79.0 H Band Neutrophils % 0 Lymphocytes % (Manual) 9.0 L Reactive Lymphs % (Man) 0 Monocytes % (Manual) 10.0 H Eosinophils % (Manual) 1.0 Basophils % (Manual) 1.0 Metamyelocytes % 0 Myelocytes % 0 Promyelocytes % 0 Blast Cells % 0 Nucleated RBC % Not Reportable Seg Neutrophils # Taper Operator Seg Neutrophils # Man 6.2 Band Neutrophils # 0.0 Lymphocytes # (Manual) 0.7 L Abs React Lymphs (Man) 0.0 Monocytes # (Manual) 0.8 Eosinophils # (Manual) 0.1 Basophils # (Manual) 0.1 Metamyelocytes # 0.0 Myelocytes # 0.0 Promyelocytes # 0.0 Blast Cells # 0.0 WBC Morphology Not Reportable Hypersegmented Neuts Not Reportable Hyposegmented Neuts Not Reportable Hypogranular Neuts Not Reportable Smudge Cells Not Reportable Toxic Granulation Not Reportable Toxic Vacuolation Not Reportable Dohle Bodies Not Reportable Pelger-Huet Anomaly Not Reportable Arsalan Rods Not Reportable Platelet Estimate Consistent w auto Clumped Platelets Not Reportable Plt Clumps, EDTA Not Reportable Large Platelets Not Reportable Giant Platelets Not Reportable Platelet Satelliting Not Reportable Plt Morphology Comment Not Reportable RBC Morphology Not Reportable Dimorphic RBCs Not Reportable Polychromasia Few Hypochromasia Not Reportable Poikilocytosis Few Anisocytosis 1+ Microcytosis Not Reportable Macrocytosis Not Reportable Spherocytes Not Reportable Pappenheimer Bodies Not Reportable Sickle Cells Not Reportable Target Cells Not Reportable Tear Drop Cells Not Reportable Ovalocytes 2+ Helmet Cells Not Reportable [place] Bodies Not Reportable [place] Rings Not Reportable [place] Cells Not Reportable Bite Cells Not Reportable Crenated Cell Not Reportable Elliptocytes Not Reportable Acanthocytes (Spur) Not Reportable Rouleaux Not Reportable Hemoglobin C Crystals Not Reportable Schistocytes Not Reportable Malaria parasites Not Reportable Mike Bodies Not Reportable Hem Pathologist Commnt No Sodium 132 L Potassium 3.5 L Chloride 98.8 Carbon Dioxide 19 L Anion Gap 18 BUN 18 H Creatinine 6.6 H Estimated GFR 8 BUN/Creatinine Ratio 3 Glucose 100 Calcium 10.6 H Total Bilirubin 0.80 Direct Bilirubin 0.3 H Indirect Bilirubin 0.5 AST 23 ALT 12 Alkaline Phosphatase 86 Total Protein 8.4 H Albumin 3.7 L Albumin/Globulin Ratio 0.8 Lipase 49 - Radiology Data Radiology results: report reviewed (CT abdomen and pelvis), image reviewed (CT abdomen and pelvis) [facility] [address] [place] [address] Cat Scan Report Signed Patient: NED JOHN MR#: [id number] : 1970 Acct:[id number] Age/Sex: 48 / F ADM Date: 02/01/19 Loc: ED Attending Dr: Ordering Physician: MARZENA ALVAREZ MD Date of Service: 02/01/19 Procedure(s): CT abdomen pelvis wo con Accession Number(s): [id number] cc: MARZENA ALVAREZ MD CT abdomen pelvis wo con INDICATION / CLINICAL INFORMATION: epigastric pain, nausea vomiting diarrhea. TECHNIQUE: All CT scans at this location are performed using CT dose reduction for ALARA by means of automated exposure control. COMPARISON: 08/22/2018 FINDINGS: No free fluid is seen in the abdomen. Once again the spleen is mildly enlarged and contains 2 low-density lesions unchanged from prior study. Diffuse atherosclerotic changes present without evidence of an aneurysm. The liver, kidneys, pancreas and adrenal glands are normal. There are some fluid-filled loops of small bowel present. In the pelvis, no free fluid is seen. An IUD is present in the uterus. No enlarged lymph nodes are identified. The bladder and the appendix are normal. No significant skeletal abnormality is seen. IMPRESSION: 1. Mild splenomegaly with low-density lesions in the spleen unchanged prior study dated 08/22/2018. 2. IUD in the uterus 3. No acute findings or interval change from the prior study dated 08/22/2018 Signer Name: Wai Schaefer MD FACR Signed: 02/01/2019 8:25 PM Workstation Name: [id number] Transcribed By: MS Dictated By: Wai Schaefer MD Electronically Authenticated By: Wai Schaefer MD Signed Date/Time: 02/01/192024 DD/ 12 TD/TT: - Differential Diagnosis gastroenteritis, pancreatitis, partial small bowel obstruction Critical care attestation.: If time is entered above; I have spent that time in minutes in the direct care of this critically ill patient, excluding procedure time. ED Disposition Clinical Impression: Gastroenteritis Disposition: DC-01 TO HOME OR SELFCARE Is pt being admited?: No Does the pt Need Aspirin: No Condition: Stable Instructions: Abdominal Pain (ED) Additional Instructions: Return to the emergency department should you develop worsening symptoms, inability to tolerate food or liquids, high fever or any other concerns Prescriptions: Dicyclomine [Bentyl] 20 mg PO QID #20 tablet Diphenoxylate/Atropine [Lomotil] 1 - 2 tab PO QID PRN #20 tablet PRN Reason: Diarrhea Ondansetron [Zofran ODT TAB] 8 mg PO Q8HR #20 tab.rapdis Referrals: [facility] MD BRUCE [Primary Care Provider] - 3-5 Days LORI JARRETT MD [Staff Physician] - 3-5 Days (Dr. Jarrett is a co teacher. Please follow up with him for further evaluation) Time of Disposition: 20:44
[2019-02-01 20:06] LABS: Albumin 3.7 g/dL (3.9-5); Bilirubin,Direct 0.3 mg/dL (0-0.2)
[2019-02-01 20:18] LABS: Total Cells Counted 100
[2019-02-01 20:23] LABS: Anisocytosis 1+; Ovalocytes 2+
[2019-02-01 20:24] LABS: Platelet Estimate Consistent w Auto; Poikilocytosis Few
--- NOTE | 2019-02-01 20:29 | Cat Scan Report ---
CT abdomen pelvis wo con INDICATION / CLINICAL INFORMATION: epigastric pain, nausea vomiting diarrhea. TECHNIQUE: All CT scans at this location are performed using CT dose reduction for ALARA by means of automated e xposure control. COMPARISON: 08/22/2018 FINDINGS: No free fluid is seen in the abdomen. Once again the spleen is mildly enlarged and contains 2 low-den sity lesions unchanged from prior study. Diffuse atherosclerotic changes present without evidence of an aneurysm. The liver, kidneys, pancreas and adrenal glands are normal. There are some fluid-filled loops of small bowel present. In the pelvis, no free fluid is seen. An IUD is present in the uterus. No enlarged lymph nodes are id entified. The bladder and the appendix are normal. No significant skeletal abnormality is seen. IMPRESSION: 1. Mild splenomegaly with low-density lesions in the spleen unchanged prior study dated 08/22/2018. 2. IUD in the uterus 3. No acute findings or interval change from the prior study dated 08/22/2018 Signer Name: Wai Schaefer MD FACR Signed: 02/01/2019 8:25 PM Workstation Name: [id number]
[2019-02-01 20:39] LABS: Platelet Count 162 K/mm3 (140-440)
[2019-02-01 20:52] VITALS: BP 153/87
== END 2019-02-01 20:51 | disposition home or self-care (01) ==
LOC: ED 18:07
DX: K52.9 Noninfective gastroenteritis and colitis, unspecified (principal); I10 Essential (primary) hypertension; F32.9 Major depressive disorder, single episode, unspecified; J45.909 Unspecified asthma, uncomplicated; F17.210 Nicotine dependence, cigarettes, uncomplicated; F12.10 Cannabis abuse, uncomplicated; E05.00 Thyrotoxicosis with diffuse goiter without thyrotoxic crisis or storm; Z79.899 Other long term (current) drug therapy
CPT/HCPCS: 36415; 74176; 80048; 80076; 83690; 85007; 85025

== ENCOUNTER 2019-04-08 08:08 | Emergency (ER) | payer MEDICAID ==
[2019-04-08 08:46] VITALS: BP 137/72
[2019-04-08 09:47] LABS: Hematocrit 27.4 % (30.3-42.9); Hemoglobin 9.1 gm/dl (10.1-14.3); Mean Corpuscular HGB Conc 33 % (30-34); Mean Corpuscular Volume 100 fl (79-97); Red Blood Count 2.75 M/mm3 (3.65-5.03); Red Cell Distribution Width 18.8 % (13.2-15.2)
[2019-04-08 09:51] LABS: Platelet Count 70 K/mm3 (140-440)
[2019-04-08 10:03] LABS: Albumin 3.2 g/dL (3.9-5); Calcium 9.1 mg/dL (8.4-10.2)
[2019-04-08 10:19] LABS: Bilirubin,Urine NEG (Negative); Blood,Urine SM (Negative); Color,Urine Yellow (Yellow); Hyaline Casts,Urine 1 /LPF; Urobilinogen,Urine < 2.0 mg/dL (<2.0)
[2019-04-08 10:20] LABS: Protein,Urine >500 mg/dL (Negative)
--- NOTE | 2019-04-08 10:27 | Emergency Department Report ---
<RUPAL COLÓN - Last Filed: 04/08/19 18:44> ED Abdominal Pain HPI - General Chief Complaint: Abdominal Pain Stated Complaint: R SIDE PAIN Time Seen by Provider: 04/08/19 09:16 Source: patient Mode of arrival: Ambulatory Limitations: No Limitations - History of Present Illness Initial Comments: Patient is a 48-year-old female presents emergency room with complaints of left sided abdominal pain that began last night. It's the discomfort worsens upon laughing, coughing, deep breath. She denies any nausea, vomiting, diarrhea, urinary symptoms, fever, shortness of breath, chest pain, leg swelling, any other symptoms. she states that she had a normal bowel movement this morning. She has a past medical history of hypertension, hypothyroid, end-stage renal disease on dialysis (M,W, F, last went to dialysis yesterday), HIV. she states she has an appointment with her infectious disease doctor on 04/11/19. she does not know her CD4 count. - Related Data Home Medications Medication Instructions Recorded Confirmed Last Taken Cinacalcet [Sensipar] 1 each PO DAILY 08/22/18 08/22/18 Unknown Citalopram 40 mg PO DAILY 08/22/18 08/22/18 Unknown NIFEdipine [Nifedipine] 1 tab PO HS 08/22/18 08/22/18 Unknown Prezcobix 800 mg-150 mg Tablet 1 each PO DAILY 08/22/18 08/22/18 Unknown lamiVUDine [Epivir] 1 each PO 3XW 08/22/18 08/22/18 Unknown Previous Rx's Medication Instructions Recorded Last Taken Type Levothyroxine [Synthroid] 25 mcg PO DAILY@0600 #30 tablet 06/10/17 Unknown Rx Lisinopril [Zestril TAB] 20 mg PO QDAY #30 tablet 06/10/17 Unknown Rx Metoprolol [Lopressor TAB] 25 mg PO BID #60 tablet 06/10/17 Unknown Rx Nitrofurantoin Henry/M-Cryst 100 mg PO Q12HR #14 capsule 08/22/18 Unknown Rx [Macrobid CAP] Ondansetron [Zofran Odt] 4 mg PO Q8HR PRN #20 tab.rapdis 08/22/18 Unknown Rx Dicyclomine [Bentyl] 20 mg PO QID #20 tablet 02/01/19 Unknown Rx Diphenoxylate/Atropine [Lomotil] 1 - 2 tab PO QID PRN #20 tablet 02/01/19 Unknown Rx Ondansetron [Zofran ODT TAB] 8 mg PO Q8HR #20 tab.rapdis 02/01/19 Unknown Rx Phenazopyridine [Pyridium] 200 mg PO BID PRN #10 tab 04/08/19 Unknown Rx cephALEXin [Keflex] 500 mg PO BID 7 Days #14 cap 04/08/19 Unknown Rx Allergies Allergy/AdvReac Type Severity Reaction Status Date / Time No Known Allergies Allergy Verified 06/07/17 04:32 ED Review of Systems Comment: All other systems reviewed and negative ED Past Medical Hx - Past Medical History Previous Medical History?: Yes Hx Hypertension: Yes Hx Congestive Heart Failure: No Hx Diabetes: No Hx Renal Disease: Yes (dialysis m/w/f) Hx Psychiatric Treatment: Yes (depression) Hx Asthma: Yes Hx COPD: No Hx HIV: Yes (normal CD4 Fall 2017) Additional medical history: hyperthyroid - Surgical History Past Surgical History?: Yes Additional Surgical History: brain anyerism with coil. graft right upper arm - Social History Smoking Status: Current Every Day Smoker Substance Use Type: Marijuana - Medications Home Medications: Home Medications Medication Instructions Recorded Confirmed Last Taken Type Levothyroxine [Synthroid] 25 mcg PO DAILY@0600 #30 tablet 06/10/17 08/22/18 Unknown Rx Lisinopril [Zestril TAB] 20 mg PO QDAY #30 tablet 06/10/17 08/22/18 Unknown Rx Metoprolol [Lopressor TAB] 25 mg PO BID #60 tablet 06/10/17 08/22/18 Unknown Rx Cinacalcet [Sensipar] 1 each PO DAILY 08/22/18 08/22/18 Unknown History Citalopram 40 mg PO DAILY 08/22/18 08/22/18 Unknown History NIFEdipine [Nifedipine] 1 tab PO HS 08/22/18 08/22/18 Unknown History Nitrofurantoin Henry/M-Cryst 100 mg PO Q12HR #14 capsule 08/22/18 Unknown Rx [Macrobid CAP] Ondansetron [Zofran Odt] 4 mg PO Q8HR PRN #20 tab.rapdis 08/22/18 Unknown Rx Prezcobix 800 mg-150 mg Tablet 1 each PO DAILY 08/22/18 08/22/18 Unknown History lamiVUDine [Epivir] 1 each PO 3XW 08/22/18 08/22/18 Unknown History Dicyclomine [Bentyl] 20 mg PO QID #20 tablet 02/01/19 Unknown Rx Diphenoxylate/Atropine [Lomotil] 1 - 2 tab PO QID PRN #20 tablet 02/01/19 Unknown Rx Ondansetron [Zofran ODT TAB] 8 mg PO Q8HR #20 tab.rapdis 02/01/19 Unknown Rx Phenazopyridine [Pyridium] 200 mg PO BID PRN #10 tab 04/08/19 Unknown Rx cephALEXin [Keflex] 500 mg PO BID 7 Days #14 cap 04/08/19 Unknown Rx ED Physical Exam - General Limitations: No Limitations General appearance: alert, in no apparent distress - Head Head exam: Present: atraumatic, normocephalic - Eye Eye exam: Present: normal appearance - ENT ENT exam: Present: mucous membranes moist - Respiratory Respiratory exam: Present: normal lung sounds bilaterally. Absent: respiratory distress, wheezes, rales, rhonchi, stridor, chest wall tenderness, accessory muscle use, decreased breath sounds, prolonged expiratory - Cardiovascular Cardiovascular Exam: Present: regular rate, normal rhythm, normal heart sounds. Absent: systolic murmur, diastolic murmur, rubs, gallop - GI/Abdominal GI/Abdominal exam: Present: soft, tenderness (left lateral abdominal TTP), normal bowel sounds. Absent: distended, guarding, rebound, rigid, mass - Back Exam Back exam: Absent: CVA tenderness (R), CVA tenderness (L) - Neurological Exam Neurological exam: Present: alert, oriented X3 - Psychiatric Psychiatric exam: Present: normal affect, normal mood - Skin Skin exam: Present: warm, dry, intact ED Medical Decision Making - Lab Data Result diagrams: 04/08/19 09:09 04/08/19 09:09 Lab Results 04/08/19 04/08/19 04/08/19 Range/Units 09:09 09:09 09:09 WBC 2.3 L (4.5-11.0) K/mm3 RBC 2.75 L (3.65-5.03) M/mm3 Hgb 9.1 L (10.1-14.3) gm/dl Hct 27.4 L (30.3-42.9) % MCV 100 H (79-97) fl MCH 33 H (28-32) pg MCHC 33 (30-34) % RDW 18.8 H (13.2-15.2) % Plt Count 70 L (140-440) K/mm3 Add Manual Diff Complete Total Counted 100 Seg Neuts % (Manual) 47.0 (40.0-70.0) % Band Neutrophils % 0 % Lymphocytes % (Manual) 37.0 H (13.4-35.0) % Reactive Lymphs % (Man) 0 % Monocytes % (Manual) 10.0 H (0.0-7.3) % Eosinophils % (Manual) 4.0 (0.0-4.3) % Basophils % (Manual) 1.0 (0.0-1.8) % Metamyelocytes % 1.0 % Myelocytes % 0 % Promyelocytes % 0 % Blast Cells % 0 % Nucleated RBC % Not Reportable Seg Neutrophils # Man 1.1 L (1.8-7.7) K/mm3 Band Neutrophils # 0.0 K/mm3 Lymphocytes # (Manual) 0.9 L (1.2-5.4) K/mm3 Abs React Lymphs (Man) 0.0 K/mm3 Monocytes # (Manual) 0.2 (0.0-0.8) K/mm3 Eosinophils # (Manual) 0.1 (0.0-0.4) K/mm3 Basophils # (Manual) 0.0 (0.0-0.1) K/mm3 Metamyelocytes # 0.0 K/mm3 Myelocytes # 0.0 K/mm3 Promyelocytes # 0.0 K/mm3 Blast Cells # 0.0 K/mm3 WBC Morphology Not Reportable Hypersegmented Neuts Not Reportable Hyposegmented Neuts Not Reportable Hypogranular Neuts Not Reportable Smudge Cells Not Reportable Toxic Granulation Not Reportable Toxic Vacuolation Not Reportable Dohle Bodies Not Reportable Pelger-Huet Anomaly Not Reportable Arsalan Rods Not Reportable Platelet Estimate Consistent w auto Clumped Platelets Not Reportable Plt Clumps, EDTA Not Reportable Large Platelets Not Reportable Giant Platelets Not Reportable Platelet Satelliting Not Reportable Plt Morphology Comment Not Reportable RBC Morphology Not Reportable Dimorphic RBCs Not Reportable Polychromasia Not Reportable Hypochromasia Not Reportable Poikilocytosis Not Reportable Anisocytosis 1+ Microcytosis Not Reportable Macrocytosis 1+ Spherocytes Not Reportable Pappenheimer Bodies Not Reportable Sickle Cells Not Reportable Target Cells Not Reportable Tear Drop Cells Not Reportable Ovalocytes 2+ Helmet Cells Not Reportable [place] Bodies Not Reportable [place] Rings Not Reportable [place] Cells Not Reportable Bite Cells Not Reportable Crenated Cell Not Reportable Elliptocytes Not Reportable Acanthocytes (Spur) Not Reportable Rouleaux Not Reportable Hemoglobin C Crystals Not Reportable Schistocytes Not Reportable Malaria parasites Not Reportable Mike Bodies Not Reportable Hem Pathologist Commnt No Sodium 133 L (137-145) mmol/L Potassium 4.4 (3.6-5.0) mmol/L Chloride 101.2 (98-107) mmol/L Carbon Dioxide 22 (22-30) mmol/L Anion Gap 14 mmol/L BUN 22 H (7-17) mg/dL Creatinine 6.9 H (0.7-1.2) mg/dL Estimated GFR 8 ml/min BUN/Creatinine Ratio 3 % Glucose 96 (65-100) mg/dL Calcium 9.1 (8.4-10.2) mg/dL Total Bilirubin 0.50 (0.1-1.2) mg/dL AST 37 (5-40) units/L ALT 24 (7-56) units/L Alkaline Phosphatase 105 (35-129) units/L Total Creatine Kinase (30-135) units/L Total Protein 8.8 H (6.3-8.2) g/dL Albumin 3.2 L (3.9-5) g/dL Albumin/Globulin Ratio 0.6 % Lipase 44 (13-60) units/L Urine Color (Yellow) Urine Turbidity (Clear) Urine pH (5.0-7.0) Ur Specific Rickman (1.003-1.030) Urine Protein (Negative) mg/dL Urine Glucose (UA) (Negative) mg/dL Urine Ketones (Negative) mg/dL Urine Blood (Negative) Urine Nitrite (Negative) Urine Bilirubin (Negative) Urine Urobilinogen (<2.0) mg/dL Ur Leukocyte Esterase (Negative) Urine WBC (Auto) (0.0-6.0) /HPF Urine RBC (Auto) (0.0-6.0) /HPF U Epithel Cells (Auto) (0-13.0) /HPF Hyaline Casts /LPF 04/08/19 04/08/19 Range/Units 09:09 09:19 WBC (4.5-11.0) K/mm3 RBC (3.65-5.03) M/mm3 Hgb (10.1-14.3) gm/dl Hct (30.3-42.9) % MCV (79-97) fl MCH (28-32) pg MCHC (30-34) % RDW (13.2-15.2) % Plt Count (140-440) K/mm3 Add Manual Diff Total Counted Seg Neuts % (Manual) (40.0-70.0) % Band Neutrophils % % Lymphocytes % (Manual) (13.4-35.0) % Reactive Lymphs % (Man) % Monocytes % (Manual) (0.0-7.3) % Eosinophils % (Manual) (0.0-4.3) % Basophils % (Manual) (0.0-1.8) % Metamyelocytes % % Myelocytes % % Promyelocytes % % Blast Cells % % Nucleated RBC % Seg Neutrophils # Man (1.8-7.7) K/mm3 Band Neutrophils # K/mm3 Lymphocytes # (Manual) (1.2-5.4) K/mm3 Abs React Lymphs (Man) K/mm3 Monocytes # (Manual) (0.0-0.8) K/mm3 Eosinophils # (Manual) (0.0-0.4) K/mm3 Basophils # (Manual) (0.0-0.1) K/mm3 Metamyelocytes # K/mm3 Myelocytes # K/mm3 Promyelocytes # K/mm3 Blast Cells # K/mm3 WBC Morphology Hypersegmented Neuts Hyposegmented Neuts Hypogranular Neuts Smudge Cells Toxic Granulation Toxic Vacuolation Dohle Bodies Pelger-Huet Anomaly Arsalan Rods Platelet Estimate Clumped Platelets Plt Clumps, EDTA Large Platelets Giant Platelets Platelet Satelliting Plt Morphology Comment RBC Morphology Dimorphic RBCs Polychromasia Hypochromasia Poikilocytosis Anisocytosis Microcytosis Macrocytosis Spherocytes Pappenheimer Bodies Sickle Cells Target Cells Tear Drop Cells Ovalocytes Helmet Cells [place] Bodies [place] Rings [place] Cells Bite Cells Crenated Cell Elliptocytes Acanthocytes (Spur) Rouleaux Hemoglobin C Crystals Schistocytes Malaria parasites Mike Bodies Hem Pathologist Commnt Sodium (137-145) mmol/L Potassium (3.6-5.0) mmol/L Chloride (98-107) mmol/L Carbon Dioxide (22-30) mmol/L Anion Gap mmol/L BUN (7-17) mg/dL Creatinine (0.7-1.2) mg/dL Estimated GFR ml/min BUN/Creatinine Ratio % Glucose (65-100) mg/dL Calcium (8.4-10.2) mg/dL Total Bilirubin (0.1-1.2) mg/dL AST (5-40) units/L ALT (7-56) units/L Alkaline Phosphatase (35-129) units/L Total Creatine Kinase 36 (30-135) units/L Total Protein (6.3-8.2) g/dL Albumin (3.9-5) g/dL Albumin/Globulin Ratio % Lipase (13-60) units/L Urine Color Yellow (Yellow) Urine Turbidity Hazy (Clear) Urine pH 9.0 H (5.0-7.0) Ur Specific Rickman 1.007 (1.003-1.030) Urine Protein >500 (Negative) mg/dL Urine Glucose (UA) >=500 (Negative) mg/dL Urine Ketones Neg (Negative) mg/dL Urine Blood Sm (Negative) Urine Nitrite Neg (Negative) Urine Bilirubin Neg (Negative) Urine Urobilinogen < 2.0 (<2.0) mg/dL Ur Leukocyte Esterase Mod (Negative) Urine WBC (Auto) 69.0 H (0.0-6.0) /HPF Urine RBC (Auto) 28.0 (0.0-6.0) /HPF U Epithel Cells (Auto) 1.0 (0-13.0) /HPF Hyaline Casts 1 /LPF - Radiology Data Radiology results: report reviewed CT ABDOMEN AND PELVIS WITHOUT CONTRAST HISTORY: Left-sided abdominal pain COMPARISON: CT of the abdomen and pelvis on 02/01/2019 and 08/22/2018. TECHNIQUE: Routine abdominal and pelvic CT exam performed without contrast. Lack of intravenous contrast limits evaluation of the vascular and solid organs.. All CT scans at this location are performed using CT dose reduction for ALARA by means of automated exposure control. FINDINGS: CT ABDOMEN: Lung Bases: No significant abnormality. Liver: No significant abnormality. Biliary: No significant abnormality. Spleen: Changed mild splenomegaly with small peripheral low density splenic lesions probably representing small splenic hemangiomas or areas of chronic infarct. Pancreas: No significant abnormality. Adrenals: No significant abnormality. Kidneys: Sable advanced bilateral renal cortical atrophy. Lymphatics: No lymphadenopathy. Vasculature: Atherosclerotic but nonaneurysmal abdominal aorta. Bowel/Peritoneum: No significant abnormality. No free air. No free fluid. Normal appendix. CT PELVIC: : IUD is seen in the uterus. There are no pelvic or adnexal masses. Lymphatics: No lymphadenopathy. Osseous Structures: Stable diffuse increased sclerosis in the medullary cavities with thinning of the bone cortices in keeping with renal osteodystrophy. Additional Findings: None IMPRESSION: 1. No acute findings. 2. 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 3. Unchanged chronic renal atrophy and findings suggesting renal osteodystrophy. Signer Name: Everton Mcdonald MD Signed: 04/08/2019 11:05 AM Workstation Name: [id number] Transcribed By: OSMANY Dictated By: Everton Mcdonald MD Electronically Authenticated By: Everton Mcdonald MD Signed Date/Time: 04/08/19 1100 - Medical Decision Making Patient is a 48-year-old female presents emergency room with complaints of left sided abdominal pain that began last night. It's the discomfort worsens upon laughing, coughing, deep breath. She denies any nausea, vomiting, diarrhea, urinary symptoms, fever, shortness of breath, chest pain, leg swelling, any other symptoms. she states that she had a normal bowel movement this morning. She has a past medical history of hypertension, hypothyroid, end-stage renal disease on dialysis (M,W, F, last went to dialysis yesterday), HIV. she states she has an appointment with her infectious disease doctor on 04/11/19. she does not know her CD4 count. vitals are normal. pt is afebrile, no tachycardia. on exam: left lateral abdominal TTP, no peritoneal signs, no guarding, no rebound. CBC is stable from prior. BMP is stable, kidney function is at baseline. UA shows evidence of UTI. pt given 1g of ceftriaxone. CT abd pelvis: 1. No acute findings. 2. 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 3. Unchanged chronic renal atrophy and findings suggesting renal osteodystrophy. Patient given prescription for Keflex and pyridium. advised pt to please take medication as prescribed. Please increase your fluid intake over the next several days. Please follow-up with a primary care doctor, GI doctor, your infectious disease doctor. Return to the emergency room for any new or worsening symptoms. - Differential Diagnosis colitis, diverticulitis, UTI, ovarian cyst, gastritis, nephrolithiasis ED Disposition Clinical Impression: Splenomegaly Abdominal pain Qualifiers: Abdominal location: left lower quadrant Qualified Code(s): R10.32 - Left lower quadrant pain UTI (urinary tract infection) Qualifiers: Urinary tract infection type: acute cystitis Hematuria presence: with hematuria Qualified Code(s): N30.01 - Acute cystitis with hematuria Anemia Qualifiers: Anemia type: unspecified type Qualified Code(s): D64.9 - Anemia, unspecified Disposition: TO HOME OR SELFCARE Is pt being admited?: No Does the pt Need Aspirin: No Condition: Stable Instructions: Urinary Tract Infection in Women (ED), Abdominal Pain (ED), Anemia (ED) Additional Instructions: Please take medication as prescribed. Please increase your fluid intake over the next several days. Please follow-up with a primary care doctor, GI doctor, your infectious disease doctor. Return to the emergency room for any new or worsening symptoms. Prescriptions: cephALEXin [Keflex] 500 mg PO BID 7 Days #14 cap Phenazopyridine [Pyridium] 200 mg PO BID PRN #10 tab PRN Reason: pain Referrals: [facility] [Provider Group] - 2-3 Days [facility] [Provider Group] - 2-3 Days your, infectious disease doctor [Other] - 2-3 Days Time of Disposition: 11:20 Print Language: MALDIVIAN <WELLINGTON CULVER - Last Filed: 04/10/19 07:38> ED Review of Systems ROS: Stated complaint: R SIDE PAIN Other details as noted in HPI ED Course Vital Signs 04/08/19 08:35 Temperature 98.8 F Pulse Rate 83 Respiratory 16 Rate Blood Pressure 137/72 O2 Sat by Pulse 99 Oximetry ED Medical Decision Making - Lab Data Result diagrams: 04/08/19 09:09 04/08/19 09:09 - Medical Decision Making 48-year-old end-stage renal failure patient on dialysis with a history of HIV. This chart is appearing in my every on this date 04/10/2019. I have never been informed of this patient's care by the PA whatsoever. I had absolutely no input in her discharge. I am retrospectively reviewing this document on this date which is my first opportunity. I do note that the patient is neutropenic with an ANC of 1.1 and has significant thrombocytopenia with splenic lesions. In addition she was found to have a UTI. Do note that the note of the PAs states "CBC is stable from prior". I have reviewed prior labs and this is not accurate. I have called the patient's family to get a status report. 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 Further urgent reevaluation is needed. Critical care attestation.: If time is entered above; I have spent that time in minutes in the direct care of this critically ill patient, excluding procedure time. ED Disposition Is pt being admited?: No Does the pt Need Aspirin: No
--- NOTE | 2019-04-08 11:09 | Cat Scan Report ---
CT ABDOMEN AND PELVIS WITHOUT CONTRAST HISTORY: Left-sided abdominal pain COMPARISON: CT of the abdomen and pelvis on 02/01/2019 and 08/22/2018. TECHNIQUE: Routine abdominal and pelvic CT exam performed without contrast. Lack of intravenous cont rast limits evaluation of the vascular and solid organs.. All CT scans at this location are performed using CT dose reduction for ALARA by means of automated exposure control. FINDINGS: CT ABDOMEN: Lung Bases: No significant abnormality. Liver: No significant abnormality. Biliary: No significant abnormality. Spleen: Changed mild splenomegaly with small peripheral low density splenic lesions probably represen ting small splenic hemangiomas or areas of chronic infarct. Pancreas: No significant abnormality. Adrenals: No significant abnormality. Kidneys: Sable advanced bilateral renal cortical atrophy. Lymphatics: No lymphadenopathy. Vasculature: Atherosclerotic but nonaneurysmal abdominal aorta. Bowel/Peritoneum: No significant abnormality. No free air. No free fluid. Normal appendix. CT PELVIC: : IUD is seen in the uterus. There are no pelvic or adnexal masses. Lymphatics: No lymphadenopathy. Osseous Structures: Stable diffuse increased sclerosis in the medullary cavities with thinning of the bone cortices in keeping with renal osteodystrophy. Additional Findings: None IMPRESSION: 1. No acute findings. 2. 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 3. Unchanged chronic renal atrophy and findings suggesting renal osteodystrophy. Signer Name: Everton Mcdonald MD Signed: 04/08/2019 11:05 AM Workstation Name: [id number]
[2019-04-08] MEDS ORDERED: LIDOCAINE-MPF (1%) 10 MG/1 ML VIAL 5 ML INFILTRATI ONE (11:18)
[2019-04-08 11:20] LABS: Total Cells Counted 100
[2019-04-08 11:21] LABS: Anisocytosis 1+; Macrocytosis 1+; Ovalocytes 2+; Platelet Estimate Consistent w Auto
== END 2019-04-08 11:45 | disposition home or self-care (01) ==
LOC: ED 08:08
DX: N39.0 Urinary tract infection, site not specified (principal); D64.9 Anemia, unspecified; R16.1 Splenomegaly, not elsewhere classified; E03.9 Hypothyroidism, unspecified; I12.0 Hypertensive chronic kidney disease with stage 5 chronic kidney disease or end stage renal disease; N18.6 End stage renal disease; F32.9 Major depressive disorder, single episode, unspecified; F17.200 Nicotine dependence, unspecified, uncomplicated; F12.10 Cannabis abuse, uncomplicated; J45.909 Unspecified asthma, uncomplicated; Z21 Asymptomatic human immunodeficiency virus [HIV] infection status; Z99.2 Dependence on renal dialysis; Z79.899 Other long term (current) drug therapy
CPT/HCPCS: 36415; 74176; 80053; 81001; 82550; 83690; 85007; 85025; 87086; 96372; 99284; J0696

== ENCOUNTER 2019-05-03 10:19 | Emergency (ER) | payer MEDICAID ==
[2019-05-03 10:27] VITALS: BP 119/64
== END 2019-05-03 12:41 | disposition left against medical advice (07) ==
LOC: ED 10:19
DX: R10.9 Unspecified abdominal pain (principal); Z53.21 Procedure and treatment not carried out due to patient leaving prior to being seen by health care provider